=== PATIENT | female | born 1955 | race Caucasian/White ===

== ENCOUNTER 2021-01-08 01:41 | Outpatient (CLI) | payer BC, SELFPAY ==
--- NOTE | 2021-01-08 | DI.MAMMO_ITS ---
EXAM: MAMMO SCREENING CLINICAL HISTORY: SCREENING TECHNIQUE: Mammograms were interpreted according to the usual protocol including computer analysis w [employer] CAD system, tomosynthesis and C-view imaging. COMPARISON: 2010 through 2018 FINDINGS: The breasts are composed of mainly fatty density , Breast Density category A. No suspicious masses or suspicious microcalcifications are seen. No skin thickening or abnormal axillary lymph nodes are seen. There has been no significant change from prior exams. IMPRESSION: BI-RADS Category 1, Negative mammogram Yearly screening mammography is recommended. Breast Density - Category A, fatty density. A negative radiographic report should not delay biopsy if a dominant or clinically suspicious mass is present. Up to ten percent of cancers are not identified on mammography. A negative report may reinforce clinical impression. Adenosis and dense breasts may obscure an underlying neoplasm. False positive reports average 6 to 10%. Patient will receive a letter notifying them of these results.
== END 2021-01-08 01:42 ==
LOC: DI 01:41
PROVIDERS: PCP Family Medicine; Visit Provider Nurse Practitioner
DX: Z12.31 Encounter for screening mammogram for malignant neoplasm of breast (principal)
CPT/HCPCS: 77063; 77067

== ENCOUNTER 2021-01-14 08:44 | Outpatient (REF) | payer BC, SELFPAY ==
--- NOTE | 2021-01-14 08:00 | PAPFT_PTH ---
PATIENT: Marion Baron LOC: [facility]#:[id number] AGE/SX: 65/F ROOM: RE01/14/[address]: Viktoriya Juan : 1955 BED: DIS: 01/14/2021 SPEC #: [id number] RECD: 01/14/21 17:50 STATUS: BRISEIDA REQ #: [id number] AUDIE: 01/14/21 08:[address]: Viktoriya Juan DEPT: [facility] Cytology RECD BY: Charisse Khalil ENTERED: 01/14/21 17:51 SP TYPE: PAPFT OTHR DR: Briana Pierre Tissues: 1 - CX/ENDOCX FOR PAP SMEARS Procedures: PAP THIN PREP/UVM Screening HPV DNA PROBE Comments: [id number]
== END 2021-01-14 08:45 | disposition home or self-care (01) ==
LOC: NCHCN 08:44
PROVIDERS: PCP Family Medicine; Visit Provider Nurse Practitioner
DX: Z12.4 Encounter for screening for malignant neoplasm of cervix (principal); Z11.51 Encounter for screening for human papillomavirus (HPV)
CPT/HCPCS: 88142; 87624

== ENCOUNTER 2022-02-08 16:55 | Outpatient (REF) | payer BC, SELFPAY ==
[2022-02-08 18:46] LABS: ALT 18 U/L (14-59); AST 16 U/L (15-37); Albumin 4.1 g/dL (3.4-5.0); Alkaline Phosphatase 111 U/L (46-116); Anion Gap 9.3 mmol/L (3-11); BUN 9 mg/dL (7-18); Bilirubin, Total 0.5 mg/dL (0.2-1.0); CO2 28.7 mmol/L (21.0-32.0); CREATININE 0.8 mg/dL (0.55-1.02); Calcium 9.5 mg/dL (8.5-10.1); Chloride 104 mmol/L (98-107); Glucose 101 mg/dL (74-106); Potassium 3.8 mmol/L (3.5-5.1); Sodium 142 mmol/L (136-145); Total Protein 7.4 g/dL (6.4-8.2)
== END 2022-02-08 16:56 | disposition home or self-care (01) ==
LOC: NCHCN 16:55
PROVIDERS: PCP Family Medicine; Visit Provider Nurse Practitioner Family
DX: Z00.00 Encounter for general adult medical examination without abnormal findings (principal); I10 Essential (primary) hypertension
CPT/HCPCS: 80053

== ENCOUNTER 2022-12-07 17:57 | Outpatient (REF) | payer BC, SELFPAY ==
[2022-12-07 16:23] LABS: Anion Gap 6.6 mmol/L (3-11); BUN 7 mg/dL (7-18); CO2 30.4 mmol/L (21.0-32.0); CREATININE 0.7 mg/dL (0.55-1.02); Calcium 9.4 mg/dL (8.5-10.1); Calculated LDL 96 mg/dL (<100); Chloride 100 mmol/L (98-107); Cholesterol 173 mg/dL (<200); Estimated GFR 95.32 (mL/min/1.73m2); Glucose 98 mg/dL (74-106); HDL Cholesterol 69 mg/dL (40-60); Potassium 3.8 mmol/L (3.5-5.1); Sodium 137 mmol/L (136-145); Triglyceride 41 mg/dL (<150)
== END 2022-12-07 17:58 | disposition home or self-care (01) ==
LOC: NCHCN 17:57
PROVIDERS: PCP Family Medicine; Visit Provider Nurse Practitioner Family
DX: I10 Essential (primary) hypertension (principal); Z13.220 Encounter for screening for lipoid disorders; Z00.00 Encounter for general adult medical examination without abnormal findings
CPT/HCPCS: 80048; 80061

== ENCOUNTER 2022-12-29 02:25 | Outpatient (CLI) | payer BC, SELFPAY ==
--- NOTE | 2022-12-29 16:40 | DI.MAMMO_ITS ---
Exam(s) MAMMO SCREENING EXAM: MAMMO SCREENING CLINICAL HISTORY: SCREENING, Z12.39 TECHNIQUE: Mammograms were interpreted according to the usual protocol including computer analysis w [employer] CAD system, tomosynthesis and C-view imaging. COMPARISON: 2012 through 2020 FINDINGS: The breasts are composed of mainly fatty density , Breast Density category A. No suspicious masses or suspicious microcalcifications are seen. No skin thickening or abnormal axillary lymph nodes are seen. There has been no significant change from prior exams. IMPRESSION: BI-RADS Category 1, Negative mammogram Yearly screening mammography is recommended. Breast Density - Category A, fatty density. A negative radiographic report should not delay biopsy if a dominant or clinically suspicious mass is present. Up to ten percent of cancers are not identified on mammography. A negative report may reinforce clinical impression. Adenosis and dense breasts may obscure an underlying neoplasm. False positive reports average 6 to 10%. Patient will receive a letter notifying them of these results.
== END 2022-12-29 02:45 ==
LOC: DI 02:27
PROVIDERS: PCP Family Medicine; Visit Provider Nurse Practitioner Family
DX: Z12.31 Encounter for screening mammogram for malignant neoplasm of breast (principal)
CPT/HCPCS: 77063; 77067

== ENCOUNTER 2023-02-07 07:41 | Day surgery (SDC) | payer BC, SELFPAY ==
--- NOTE | 2023-02-06 20:23 | W.PM.DSUDISC ---
Date of service: 02/07/23 Time of Service: 09:49 Discharge Plan Disposition Patient Disposition: Home Condition: Good Discharge Details Reason For Visit: Colonoscopy Attending Provider: Hansel Barr Primary Care Provider: Briana Pierre Home Meds and New Rx's Prescriptions: Continued lisinopril 5 mg tablet 5 mg PO DAILY hydrochlorothiazide 12.5 mg capsule 12.5 mg PO DAILY Discontinued bisacodyl [Dulcolax (bisacodyl)] 5 mg tablet,delayed release (DR/EC) 5 mg PO ONCE Qty: 4 0RF Rx Instructions: Take according to provider's instructions for colonoscopy prep. polyethylene glycol 3350 17 gram/dose powder 17 g PO ONCE Qty: 238 0RF Rx Instructions: To be taken as directed by prescriber's office for colonoscopy prep. Discharge Instructions Additional Instructions: Marion, we were able to complete your colonoscopy today. The quality of your preparation was excellent. I found 1 tiny polyp in your rectum. I removed this completely. I will notify you when I have the pathology report. Based on the character and appearance of it, it could be that this is not even a true polyp. 1. If tolerated, consume a soft, low fiber diet for 1-2 days. 2. Do not drive, drink alcohol, operate machinery, make critical decisions, or do activities that require coordination or balance for 24 hours. 3. Because air was put into your colon during the procedure, expelling air from your rectum (passing gas or farting) is normal. 4. You may not have a bowel movement for 1-3 days because of the colonoscopy prep. This is normal. 5. Go directly to the emergency room if you notice any of the following: Develop chills (warm to touch), or if you have a thermometer and your temperature is above 101 Difficulty breathing or difficultly swallowing Persistent vomiting Severe abdominal pain, other than gas cramps Severe chest pain Black, tarry stools Any bleeding ? exceeding one tablespoon 6. Call your physician if the site where your intravenous was started becomes red, swollen, painful, and warm to touch. 7. Your physician has reviewed your pre-procedure medications. Please continue to take those medications as previously ordered. You will be given specific information/education regarding any changes to your medications before leaving. Activity:: Activity as Tolerated Diet:: As Tolerated Discharge Orders Discharge Orders: Discharge Order (Routine); Ordered 02/06/23 Ordered By: Hansel Barr DS: Diagnosis Discharge Diagnosis (1) Screening for colon cancer: Status: Acute Asessment and Plan: Follow-up on polypectomy results
--- NOTE | 2023-02-06 20:24 | W.COLOREPORT ---
Date of service: 02/07/23 Time of Service: 09:50 Colonoscopy Report Date of procedure: 02/07/23 Pre-op diagnosis general: Screening colonoscopy Procedure: Colonoscopy Surgeon: Hansel Barr Anesthesia Type: General:No Airway Estimated blood loss (mL): 5 Pathology: other (Rectal polyp) Complications: None Disposition: same day Indications: Marion is a 67-year-old woman who is here for her next screening colonoscopy. Prep: Miralax/Dulcolax Procedure Start Time: 09:04 Procedure End Time: 09:38 Retraction Time: 18 Findings: Single rectal polyp Procedure Description: After the induction of monitored anesthetic care, and with the patient in left lateral decubitus position, I began by performing an external anorectal exam.? Perineum and skin were normal, as was the anal verge.? There was no evidence of external hemorrhoids.? Next, I performed a digital rectal exam.? I did not appreciate any abnormal findings.? Next, I advanced a colonoscope into the rectal vault.? I performed retroflexion.? This appeared normal.? There was a single rectal polyp. It was less than 0.25 cm. I removed it with cold forcep polypectomy. Using insufflation, I then advanced the colonoscope beyond the rectal folds and into the sigmoid colon before advancing towards the cecum.? The quality of the prep was adequate.? The colon was a bit tortuous, and did require some repeated repositioning, and gentle abdominal pressure to help advance the scope into the cecum. The scope was noted to be in the cecum by identification of the ileocecal valve and appendiceal orifice.? I then began withdrawing the colonoscope using repeated irrigation as necessary for full evaluation of the colonic mucosa. ?Once the scope was withdrawn to the level of the rectum, great care was taken to examine portions of the rectal folds.? Finally, the scope was withdrawn and the patient was brought to the same-day surgery recovery unit as the anesthetic wore off. ?The findings and instructions were shared with the patient prior to discharge.
[2023-02-07 07:56] VITALS: BP 150/92; PULSE 98; RESP 18; TEMP 36.4; O2SAT 99
[2023-02-07] MEDS: Lactated Ringers 1,000 ML 80 ML IV (08:19)
--- NOTE | 2023-02-07 08:39 | ANES.PREOP_ITS ---
General Info Date of Service Date Performed: 02/07/23 Height: 5 ft 7 in Weight: 98.9 kg Body Mass Index (BMI): 34.1 Surgical Procedure: Operation Date: 02/07/23 08:50 Proposed Procedure Side Surgeon p Aura Barr MD Meds Allergies and Home Medications Allergies Allergy/AdvReac Type Severity Reaction Status Date / Time No Known Allergies Allergy Unverified 01/13/23 15:05 Home Medication Medication Instructions Recorded hydrochlorothiazide 12.5 mg capsule 12.5 mg PO DAILY 06/17/22 lisinopril 5 mg tablet 5 mg PO DAILY 06/17/22 Current Visit Medications: Current Medications Generic Name Dose Route Start Last Admin Trade Name Freq PRN Reason Stop Dose Admin Hyoscyamine Sulfate 0.125 mg 02/06/23 20:25 Hyoscyamine 0.125 Mg Sl/Oral/Chew SL DIRECTED PRN Ringer's Solution 1,000 mls @ 80 mls/hr 02/07/23 06:00 02/07/23 08:19 IV 03/06/23 23:59 80 mls/hr INFUSION RENATO Administration IV Miscellaneous Supplies 1 each 02/07/23 06:00 Iv Access IV 03/06/23 23:59 DIRECTED RENATO Ondansetron HCl 4 mg 02/06/23 20:25 Ondansetron 4 Mg/2 Ml Vial IVP Q4H PRN PRN Nausea / Vomiting Sodium Chloride 0 ml 02/07/23 06:00 Normal Saline Flush 10 Ml Syr IV 03/06/23 23:59 PRN PRN Sodium Chloride 0 ml 02/07/23 06:00 Normal Saline 10 Ml Vial IJ 03/06/23 23:59 DIRECTED PRN Sterile Water 0 ml 02/07/23 06:00 Water,Injection,Sterile 10 Ml Vial IJ 03/06/23 23:59 DIRECTED PRN PFSH Active Problems Active Problems: Problem Status Onset Code Screening for colon cancer Z12.11 Medical History Medical History Bunion, right Cataract, bilateral Hx of adenomatous colonic polyps Hypertension Intraductal papilloma Medical History Comments:: 02/07/23: pt reports she had nausea post- cholecystectomy, related to anesthesia Surgical History Surgical History Arthroplasty of knee (05/05/16) left lateral meniscus tear/DR. ALVARADO Tobacco Smoking/Tobacco Use Status: Never Alcohol Alcohol Intake: current Alcohol intake frequency: holidays/special occasions only Substance Use Substance use: Never Substance use type: does not use Vital Signs and Lab Results Vital Signs Most Recent Vital Signs in EMR: Most Recent Vital Signs Temp Pulse Resp BP Pulse Ox 36.4 C L 98 H 18 150/92 H 99 02/07/23 07:56 02/07/23 07:56 02/07/23 07:56 02/07/23 07:56 02/07/23 07:56 Lab Results Blood Type / Crossmatch: No Data to Display Complete Blood Count: No Data to Display Complete Metabolic Panel: No Data to Display Liver Function Panel: No Data to Display Coagulation Panel: No Data to Display Cardiac Panel: No Data to Display Arterial Blood Gas: No Data to Display Venous Blood Gas: No Data to Display Pancreas Panel: No Data to Display Thyroid Panel: No Data to Display Infectious Disease: No Data to Display Blood Cultures: No Data to Display Toxicology Panel: No Data to Display Anesthesia Assessment and Plan Anesthesia History Personal History: PONV Family History: No Family History of Anesthesia Complications Exercise Tolerance Exercise Tolerance: Metabolic Equivalents>4 Pertinent Negatives Pertinent Negatives: No Symptoms of GERD Cardiac & Pulmonary Exam Cardiac Exam: Normal S1/S2 Heart Sounds Pulmonary Exam: Clear Bilateral Breath Sounds Implantable Cardiac Device Does patient have a Pacemaker or an ICD?: No Airway Exam Known Difficult Airway: No Mallampati Class: 2 Mouth Opening: Normal (> 3cm) Thyromental Distance: Greater than 3 cm Neck Range of Motion: Full ROM Neck Circumference: Normal Teeth Condition: Normal Dentition ASA Classification ASA Score: ASA 2 Emergency Case?: No NPO Status NPO Status: NPO Clears >2 hours, Solids >8 hours Anesthesia Plan Resuscitation Status: Full Code Anesthesia Technique: General Anesthesia Airway Planned: Natural Airway Monitors Used: Standard Monitors
[2023-02-07 08:50] VITALS: BMI 34.1
--- NOTE | 2023-02-07 09:06 | BOWEL_PTH ---
PATIENT: Marion Baron LOC: [facility] U#:[id number] AGE/SX: 67/F ROOM: RE02/07/[address]: Hansel Barr MD : 1955 BED: DIS: 02/07/2023 SPEC #: [id number] RECD: 02/07/23 12:40 STATUS: BRISEIDA REQ #: [id number] AUDIE: 02/07/23 09:[address]: Hansel Barr DEPT: Surgical Specimen RECD BY: Charisse Khalil ENTERED: 02/07/23 12:41 SP TYPE: Bowel OTHR DR: Briana Pierre Tissues: 1 - BIOPSY BOWEL Procedures: GROSS AND MICRO LEVEL 4 Comments: [id number]
[2023-02-07 09:49] VITALS: BP 113/71; PULSE 73; RESP 18; TEMP 36.1; O2SAT 99
--- NOTE | 2023-02-07 09:55 | W.ANESPOSTOP ---
Postoperative Evaluation Date, Time and Location Date Performed: 02/07/23 Time Performed: 09:55 Patient Location: Day Surgery Unit Vital Signs Most Recent Imported Vital Signs: Most Recent Vital Signs Temp Pulse Resp BP Pulse Ox 36.1 C L 73 18 113/71 99 02/07/23 09:49 02/07/23 09:49 02/07/23 09:49 02/07/23 09:49 02/07/23 09:49 Pain Score Most Recent Pain Score: Most Recent Pain Score Pain Level 0 02/07/23 09:49 Assessment Mental Status: Awake (Alert & Oriented to Patient Baseline) Airway and Respiratory Function: Patent airway with normal (patient baseline) respiratory exam Cardiovascular Function: Hemodynamically Stable Hydration Status: Adequately Hydrated Nausea & Vomiting: No Nausea or Vomiting Pain: Pt. Denies Any Pain Peripheral Nerve Block: Patient did not receive a nerve block
[2023-02-07 10:18] VITALS: BP 151/78; PULSE 64; TEMP 36.3; O2SAT 99
== END 2023-02-07 10:26 | disposition home or self-care (01) ==
PROVIDERS: PCP Family Medicine; Visit Provider Surgery
PROC: 0DJD8ZZ Inspection of Lower Intestinal Tract, Via Natural or Artificial Opening Endoscopic (ICD-10-PCS; CPT 45378; principal; 2023-02-07 08:45)
DX: Z12.11 Encounter for screening for malignant neoplasm of colon (principal); K62.1 Rectal polyp
CPT/HCPCS: 45380; 88305; J2704

== ENCOUNTER 2024-05-16 11:41 | Outpatient (REF) | payer MEDICARE, SELFPAY ==
[2024-05-16 19:34] LABS: Anion Gap 8.2 mmol/L (3-11); BUN 11 mg/dL (7-18); CO2 28.8 mmol/L (21.0-32.0); CREATININE 0.8 mg/dL (0.55-1.02); Calcium 9.4 mg/dL (8.5-10.1); Chloride 101 mmol/L (98-107); Estimated GFR 80.71 (mL/min/1.73m2); Glucose 99 mg/dL (74-106); Potassium 4.4 mmol/L (3.5-5.1); Sodium 138 mmol/L (136-145)
== END 2024-05-16 11:42 | disposition home or self-care (01) ==
LOC: LBN 11:41
PROVIDERS: PCP Family Medicine; Visit Provider Nurse Practitioner Family
DX: I10 Essential (primary) hypertension (principal)
CPT/HCPCS: 80048

== ENCOUNTER 2024-07-09 02:34 | Outpatient (CLI) | payer MEDICARE, SELFPAY ==
--- NOTE | 2024-07-09 | DI.DEXA_ITS ---
Exam(s) XR DEXA BONE DENSITY W/WO TRISTAN EXAM: XR DEXA BONE DENSITY W/WO TRISTAN CLINICAL HISTORY: SCREENING FOR OSTEOPOROSIS, Z78.0 TECHNIQUE: COMPARISON: Comparison examination is 05/03/2005. FINDINGS: Lateral Spine Image: Unremarkable. No compression deformities identified. Left hip: Total T-Score: -0.8. This compares to 0.8 on the prior examination. Total Z-Score: 0.5 T- and Z-scores: No evidence of osteoporosis. Lumbar Spine: Total T-Score: 0.3. This compares to 1.4 on the prior examination. Total Z-Score: 2.2 T- and Z-scores: No evidence of osteoporosis. IMPRESSION: No evidence of osteoporosis.
--- NOTE | 2024-07-09 | DI.MAMMO_ITS ---
Exam(s) MAMMO SCREENING EXAM: MAMMO SCREENING CLINICAL HISTORY: SCREENING, Z12.31 TECHNIQUE: Bilateral full field digital CC and MLO mammographic images were obtained with 3D tomosyn thesis and utilizing computer aided detection (CAD). COMPARISON: Available for comparison. FINDINGS: Masses/Architectural Distortion: No suspicious or new nodules are seen. Microcalcifications: No suspicious pleomorphic-type are seen. Skin Thickening/Nipple Retraction: None. IMPRESSION: 1. No significant interval change with no specific features of malignancy noted. 2. Unless there is more urgent need, screening mammography is recommended, as per [employer] guidelines. BI-RADS Category 1 - Negative Breast Density - Category B - Scattered areas of fibroglandular density Breast density category C or D implies that the patient has dense breast tissue. Dense breast tissue is very common and is not abnormal but dense breast tissue can make it harder to find cancer on a ma mmogram. Also, dense breast tissue may increase their breast cancer risk. This information about the result of the mammogram report was provided to the patient to raise their awareness. Use this report when you speak with the patient about their risks for breast cancer, which includes their family hist ory. At that time, you may recommend for more screening tests (Ultrasound or MRI) as they might be us eful based on their risk. A negative radiographic report should not delay biopsy if a dominant or clinically suspicious mass is present. Up to ten percent of cancers are not identified on mammography. A negative report may reinforce clinical impression. Adenosis and dense breasts may obscure an underlying neoplasm. False positive reports average 6 to 10%. Patient will receive a letter notifying them of these results.
--- OUTSIDE RECORDS SUMMARY | 2024-07-09 02:35 | XMS_ITS | Encounter Summary ---
Author Organization [facility] Address [facility] [place] [address] Care Team Providers Care Painter Mirror Name Role Phone Briana Pierre MD Primary Care Provider [phone] Encounter Details Date Type Department Care Team (Late st Contact Info) Description 06/22/2005 Orders Only Dermatology at [place] [address] [place] [id number] Dez Hook MD [address] [facility] [place] [address] Social History Tobacco Use Types Packs/Day Years Used Date Smoking Tobacco: Never Assessed Sex and Gender Information Value Date Recorded Sex Assigned at Not on file Gender Identity Not on file Sexual Orientation Not on file documented as of this encounter Plan of Treatment Not on file documented as of this encounter Procedures Procedure Name Priority Date/Time Associated Diagnosis Comments SURGICAL PATHOLOGY REPORT Routine 06/22/2005 8:29 PM EDT documented in this encounter Results * Surgical Pathology Report (06/22/2005 8:29 PM EDT) Surgical Pathology Report [id number] ? Location: The signing pathologist has (i) examined the relevant preparation(s) for the specimen(s) and (ii) rendered or confirmed the diagnosis(es). . ?Pathology Surgical Pathology Final Report Clinical Information Specimen Submitted: A - (R) Forehead - shave Clinical History: New pigmented papule in pt. with major sun exposure history; Juan K, r/o pigmented BCCa Gross Description Labeled/Fixativ e: ? Labeled with the patient's name, formalin. Qty/Size/Weight : ?Single shave, 0.6 cm, mottled, valero-white to ?valero-pink skin. Sections/Proces sing: ??Inked. Bisected. ??(T1) avt/EJR Microscopic Description Slides reviewed, microscopic description not recorded. Diagnosis Skin of right forehead, shave biopsy: Basal cell carcinoma, pigmented. CR-0 06/23/05 AVT 06/23/05 Verified by: ? Nicole Garland ?Dermatopathol ogist ?(Electronic Signature) The attending pathologist whose signature appears on this report has reviewed all diagnostic slides and has edited the gross and/or microscopic portion of the report in rendering the final pathologic diagnosis. ANTONI MORROW 06/22/2005 8:29 PM EDT Dez Hook MD PATHOLOGY/CYTOLOGY O [facility] Performing Organization Address City/State/[facility] Co tx Phone Number ANTONI MORROW documented in this encounter Visit Diagnoses Not on filedocumented in this encounter Care Teams Painter Mirror Relationship Specialty Start Date End Date Briana Pierre MD [address] [place] [address] PCP - General 10/20/10 documented as of this encounter
--- OUTSIDE RECORDS SUMMARY | 2024-07-09 02:35 | XMS_ITS | Encounter Summary ---
Author Organization [facility] Address [facility] [place] [address] Care Team Providers Care Loader [employer] Name Role Phone Briana Pierre MD Primary Care Provider [phone] Encounter Details Date Type Department Care Team (Latest Contact Info) Description 12/01/2015 1:57 PM EST - 12/01/2015 11:59 PM EST Hospital En[place] [address] Coty Hayward MD [facility] [place] [address] Breast cancer screening, high risk patient Discharge Disposition: Home Social History Tobacco Use Types Packs/Day Years Used Date Smoking Tobacco: Never Sex and Gender Information Value Date Recorded Sex Assigned at Not on file Gender Identity Not on file Sexual Orientation Not on file documented as of this encounter Medications at Time of Discharge Medication Sig Dispensed Refills Start Date End Date hydrochlorothiazide (HYDRODIURIL) 25 mg tablet 10/19/2010 documented as of this encounter Plan of Treatment Not on file documented as of this encounter Procedures Procedure Name Priority Date/Time Associated Diagnosis Comments MAMMO SCREENING CAD AND LASHAE BILATERAL Routine 12/01/2015 2:23 PM EST Breast cancer screening, high risk patient documented in this encounter Results * Mammo Digital Bilateral Screening With CAD and Tomosynthesis (12/01/2015 2:23 PM EST) Anatomical Region Laterality Modality Breast Bilateral Mammography Narrative 12/02/2015 8:49 AM EST BILATERAL MAMMOGRAPHY REASON FOR EXAM: Screening TECHNIQUE: CC and MLO views were obtained of each breast using standard 2-D mammography as well as 3-D tomosynthesis. Computer aided detection was used. This is compared with prior images. FINDINGS: ??The breasts are almost entirely fatty. There are no suspicious microcalcifications, masses, or areas of distortion. The pattern is stable. CONCLUSION: No mammographic evidence of malignancy. RECOMMENDATION: The [place] [employer] and The Society of Breast Imaging recommend annual screening beginning at age 40 for the general female population. Screening should continue as long as a woman is in good health and is expected to live 10 more years or longer. All women should be familiar with the known benefits, limitations, and potential harms linked to breast cancer screening. They should also know how their breasts normally look and feel and report any breast changes to a health care provider right away. Some women - because of their family history, a genetic tendency, or certain other factors - should be screened with MRIs along with mammograms. (The number of women who fall into this category is very small.) The patient and health care provider should discuss the patient history and decide if earlier screening and breast MRI are appropriate. A result letter has been sent to this patient by the [facility]. BIRADS CATEGORY 1: NEGATIVE Coty Hayward MD IMG MAMMO ORDERABLE S documented in this encounter Visit Diagnoses Diagnosis Breast cancer screening, high risk patient Screening mammogram for high-risk patient documented in this encounter Care Teams Loader Malt House Relationship Specialty Start Date End Date Briana Pierre MD [address] [place] [address] PCP - General 10/20/10 documented as of this encounter
--- OUTSIDE RECORDS SUMMARY | 2024-07-09 02:35 | XMS_ITS | Encounter Summary ---
Author Organization [facility] Address [facility] [place] [address] Care Team Providers Care Diamond Wheel Edger Name Role Phone Briana Pierre MD Primary Care Provider [phone] Encounter Details Date Type Department Care Team (Late st Contact Info) Description 07/26/2013 Orders [place] [address] Rachel Khan, JAMIA [facility] [place] [address] Breast cancer screening, high risk patient (Primary Dx) Social History Tobacco Use Types Packs/Day Years Used Date Smoking Tobacco: Never Sex and Gender Information Value Date Recorded Sex Assigned at Not on file Gender Identity Not on file Sexual Orientation Not on file documented as of this encounter Plan of Treatment Not on file documented as of this encounter Results * Mammo digital bilateral Screening with CAD (10/29/2013 1:50 PM EST) Anatomical Region Laterality Modality Breast Bilateral Mammography 10/29/2013 1:50 PM EST Narrative 10/30/2013 11:35 AM EST Reason for Exam: Screening ?? Technique: Craniocaudal (CC) and Medio-lateral Oblique (MLO) views of both breasts obtained with direct digital capture. ?? The exam was evaluated by CAD version 8.3.17. ?? Findings: ?? This is a negative mammogram (ACR Category 1). There is a stable fibroglandular pattern without significant change from prior studies. There is no mammographic evidence of cancer. The breasts are of scattered density. ?? CONCLUSION: This is a NEGATIVE mammogram (ACR Category 1). ?? Routine screening mammography is recommended with the frequency dependent upon the patients age and breast cancer risk factors. ?? A letter has been sent to this patient by the breast imaging center. Procedure Note Bette Burger MD - 10/30/2013 Reason for Exam: Screening Technique: Craniocaudal (CC) and Medio-lateral Oblique (MLO) views of both breasts obtained with direct digital capture. The exam was evaluated by CAD version 8.3.17. Findings: This is a negative mammogram (ACR Category 1). There is a stablefibroglandular pattern without significant change from prior studies. There is no mammographic evidence of cancer. The breasts are of scattered density. CONCLUSION: This is a NEGATIVE mammogram (ACR Category 1). Routine screening mammography is recommended with the frequency dependentupon the patients age and breast cancer risk factors. A letter has been sent to this patient by the breast imaging center. Coty Hayward MD IMG MAMMO ORDERABLE S documented in this encounter Visit Diagnoses Diagnosis Breast cancer screening, high risk patient- Primary Screening mammogram for high-risk patient Breast cancer screening, high risk patient Screening mammogram for high-risk patient documented in this encounter Care Teams Diamond Wheel Edger Relationship Specialty Start Date End Date Briana Pierre MD [address] [place] [address] PCP - General 10/20/10 documented as of this encounter
--- OUTSIDE RECORDS SUMMARY | 2024-07-09 02:35 | XMS_ITS | Clinical Summary ---
Author Organization [facility] [place] [address] Care Team Providers Care Car Hop Name Role Phone Briana Pierre MD Primary Care Provider [phone] Allergies No known active allergies Medications Medication Sig Dispensed Refills Start Date End Date Status hydrochlorothiazide (HYDRODIURIL) 25 mg tablet 10/19/2010 Active Active Problems Problem Noted Date Diagnosed Date Breast cancer screening, high risk patient 10/25 Family History Medical History Relation Comments Breast Cancer Neg Hx Social History Tobacco Use Types Packs/Day Years Used Date Smoking Tobacco: Never Sex and Gender Information Value Date Recorded Sex Assigned at Not on file Gender Identity Not on file Sexual Orientation Not on file Last Filed Vital Signs Vital Sign Reading Time Taken Comments Blood Pressure 132/80 10/25/2011 1:00 PM EST Pulse 57 10/25/2011 1:00 PM EST Temperature - - Respiratory Rate 16 10/25/2011 1:00 PM EST Oxygen Saturation 100% 10/25/2011 1:00 PM EST Inhaled Oxygen Concentration - - Weight 90.2 kg (198 lb 13.7 oz) 011 12:59 PM EST Height 172 cm (5' 7.72) 10/25/2011 12: 58 PM EST Body Mass Index 30.49 10/25/2011 12:58 PM EST Plan of Treatment Health Maintenance Due Date Last Done Comments CT Colonography 1956 Colonoscopy 1956 Colorectal Cancer Screening 1956 FIT DNA 1956 FIT 1956 Sigmoidoscopy (10 year) with FIT yearly 1956 Sigmoidoscopy 1956 Hepatitis C Screening 1974 Tdap adult 1975 Tetanus vaccine 1975 Breast Cancer Share Decision Needed 1996 Zoster vaccine (1 of 2) 2006 Advance Directive 2011 Breast Cancer screening 02/21/2020 02/21/20 18, 02/17/2017, 12/01/2015, Additional history exists Bone Density Scan 2021 Pneumoccocal Vaccine: 65+ (1 of 1 - PCV) 2021 Covid-19 Vaccine (1 - 2022-2 4 season) 2023 Influenza (Flu) vaccine (1 o f 1 - Influenza standard series) 07/29/2024 Procedures Procedure Name Priority Date/Time Associated Diagnosis Comments MAMMO SCREENING CAD AND CHRIS BILATERAL Routine 02/20/2018 1:18 PM EDT Breast cancer screening, high risk patient from Last 3 Months or Most Recently Relevant to Health Maintenance Results * Mammo Screen CAD and Chris Bilat (Generic) (02/20/2018 1:18 PM EDT) Anatomical Region Laterality Modality Breast Bilateral Mammography Impressions 02/20/2018 7:16 PM EDT No mammographic evidence of malignancy. RECOMMENDATION: Routine annual screening. A result letter has been sent to this patient by the Breast Imaging Center. BIRADS CATEGORY 1: NEGATIVE * ??The [place] [employer] and The Society of Breast Imaging recommend annual screening beginning at age 40 for the general female population. * ??Screening should continue as long as a woman is in good health and is expected to live 10 more years or longer. * ??All women should be familiar with the known benefits, limitations, and potential harms linked to breast cancer screening. They also should know how their breasts normally look and feel and report any breast changes to a health care provider right away. * ??Some women, because of their family history, a genetic tendency, or certain other factors, should be screened with MRIs along with mammograms. (The number of women who fall into this category is very small.) The patient and health care provider should discuss the patient history and decide if earlier screening and breast MRI are appropriate. Narrative 02/20/2018 7:16 PM EDT BILATERAL MAMMOGRAPHY REASON FOR EXAM: Screening TECHNIQUE: CC and MLO views were obtained of each breast using standard 2-D mammography as well as 3-D tomosynthesis. Computer aided detection was used. Comparison: This is compared with prior images. FINDINGS: There are scattered areas of fibroglandular density. There are no suspicious microcalcifications, masses, or areas of distortion. The pattern is stable. Coty Hayward MD IMG MAMMO ORDERABLE S from Last 3 Months or Most Recently Relevant to Health Maintenance Care Teams Car Hop Relationship Specialty Start Date End Date Briana Pierre MD [address] [facility] [address] [place] [address] PCP - General 10/20/10
--- OUTSIDE RECORDS SUMMARY | 2024-07-09 02:35 | XMS_ITS | Encounter Summary ---
Author Organization [facility] [place] [address] Care Team Providers Care Proposal Development Manager Name Role Phone Briana Pierre MD Primary Care Provider [phone] Reason for Visit * Reason Comments Follow Up Surgery Encounter Details Date Type Department Care Team (Late st Contact Info) Description 10/29/2013 2:15 PM EST Follow-[place] [address] CLINIC, Rachel Drake, [facility] [place] [address] Breast cancer screening, high risk patient (Primary Dx) Discharge Disposition: Home Social History Tobacco Use Types Packs/Day Years Used Date Smoking Tobacco: Never Sex and Gender Information Value Date Recorded Sex Assigned at Not on file Gender Identity Not on file Sexual Orientation Not on file documented as of this encounter Progress Notes * Rachel Khan, JAMIA - 10/29/2013 2:29 PM EST Marion is a 58 year-old pt of Dr Hayward who presents to clinic today for an interval breast exam. She initially presented with clear nipple discharge, which was quite copious. On evaluation, including ultrasound and MRI, she was found to have one abnormal- appearing duct, although no discrete masses. She was brought to the Operating Room on September 01, 2007, for a wire-localized partial mastectomy. Final pathology revealed an intraductal papilloma as well as a focal area of atypical ductal hyperplasia in the adjacent breast parenchyma. She decided against any form of chemoprevention. She has had no nipple discharge or other new breast concerns. She had a bilateral mammogram today, results pending. On exam, Marion is well-appearing and in no apparent distress. She is anicteric and nontoxic. Right breast reveals a well-healed incision in the lower breast without masses.There is no nipple discharge. No axillary adenopathy, no masses in either breast. Assessment and Plan: Marion is a 58 year-old female with a history of an intraductal papilloma and atypical ductal hyperplasia identified in her surgical specimen.I have recommended that she continue to follow up once a year with a clinical breast exam here in the Breast Clinic, as well as with her primary care provider. I have recommended annual mammograms. I will see Marion back in one year,with a bilateral mammogram in one year or sooner if indicated. She agrees with this plan. documented in this encounter Plan of Treatment Not on file documented as of this encounter Visit Diagnoses Diagnosis Breast cancer screening, high risk patient- Primary Screening mammogram for high-risk patient documented in this encounter Care Teams Proposal Development Manager Relationship Specialty Start Date End Date Briana Pierre MD [address] [place] [address] PCP - General 10/20/10 documented as of this encounter
--- OUTSIDE RECORDS SUMMARY | 2024-07-09 02:35 | XMS_ITS | Encounter Summary ---
Author Organization [facility] Address [facility] [place] [address] Care Team Providers Care Behavioral Health Technician Name Role Phone Briana Pierre MD Primary Care Provider [phone] Encounter Details Date Type Department Care Team (Latest Contact Info) Description 02/20/2018 12:26 PM EDT - 02/20/2018 11:59 PM EDT Hospital [place] [address] Coty Hayward MD [facility] [place] [address] Breast cancer screening, high risk patient Discharge [...] MAMMO SCREENING CAD AND LASHAE BILATERAL Routine 02/20/2018 1:18 PM EDT Breast cancer screening, high risk patient documented in this encounter Results * Mammo Screen CAD and Lashae Bilat (Generic) (02/20/2018 1:18 PM EDT) Anatomical Region Laterality Modality Breast Bilateral Mammography Impressions 02/20/2018 7:16 PM EDT No mammographic evidence of malignancy. RECOMMENDATION: Routine annual screening. A result letter has been sent to this patient by the Breast Imaging Center. BIRADS CATEGORY 1: NEGATIVE * ??The [place] [employer] and The Society of [...] patient documented in this encounter Care Teams Behavioral Health Technician Relationship Specialty Start Date End Date Briana Pierer MD [address] [place] [address] PCP - General 10/20/10 documented as of this encounter
--- OUTSIDE RECORDS SUMMARY | 2024-07-09 02:35 | XMS_ITS | Encounter Summary ---
[place] [address] Care Team Providers Care Ct Technologist Name Role Phone Briana Pierre MD Primary Care Provider [phone] Encounter Details Date Type Department Care Team (Latest Contact Info) Description 10/25/2011 1:14 PM EST - 10/25/2011 11:59 PM EST Hospital En[place] [id number] Breast cancer screening, high risk patient Social History Tobacco Use Types Packs/Day Years [...] Date/Time Associated Diagnosis Comments MAMMO SCREENING CAD BILATERAL Routine 10/25/2011 1:48 PM EST Breast cancer screening, high risk patient documented in this encounter Results * Mammo digital bilateral Screening with CAD (10/25/2011 1:48 PM EST) Anatomical Region Laterality Modality Breast Bilateral Mammography 10/25/2011 1:48 PM EST Narrative 10/26/2011 10:20 AM EST Reason for Exam: Screening ?? Technique: Craniocaudal (CC) and Medio-lateral Oblique (MLO) views of both breasts obtained with direct digital capture. The exam was evaluated by CAD version 8.3.17. ?? Findings: ?? This is a negative mammogram (ACR Category 1). ??There is a stable fibroglandular pattern without significant change from prior studies. There is no mammographic evidence of cancer. ??The breasts are of scattered density. ?? CONCLUSION: This is a NEGATIVE mammogram (ACR Category 1). ?? Routine screening mammography is recommended with the frequency dependent upon the patient's age and breast cancer risk factors. A letter has been sent to this patient by the breast imaging center. Procedure Note Bette Burger MD - 10/26/2011 Reason for Exam: Screening Technique: Craniocaudal (CC) [...] is recommended with the frequency dependentupon the patient's age and breast cancer risk factors. A letter has been sent to this patient by the breast imaging center. Coty Hayward MD IMG MAMMO ORDERABLE S documented in this encounter Visit Diagnoses Diagnosis Breast cancer screening, high risk patient Screening mammogram for high-risk patient documented in this encounter Care Teams Ct Technologist Relationship Specialty Start Date End Date Briana Pierre MD [address] [place] [address] PCP - General 10/20/10 documented as of this encounter
--- OUTSIDE RECORDS SUMMARY | 2024-07-09 02:35 | XMS_ITS | Encounter Summary ---
[place] [address] Care Team Providers Care Survey Compiler Name Role Phone Briana Pierre MD Primary Care Provider [phone] Encounter Details Date Type Department Care Team (Latest Contact Info) Description 10/29/2013 1:21 PM EST - 10/29/2013 11:59 PM EST Hospital [place] [phone] Breast cancer screening, high risk patient Social [...] Diagnosis Comments MAMMO SCREENING CAD BILATERAL Routine 10/29/2013 1:50 PM EST Breast cancer screening, high risk [...] patient documented in this encounter Care Teams Survey Compiler Relationship Specialty Start Date End Date Briana Pierre MD [facility] [address] [place] [address] PCP - General 10/20/10 documented as of this encounter
--- OUTSIDE RECORDS SUMMARY | 2024-07-09 02:35 | XMS_ITS | Encounter Summary ---
[facility] [place] [address] Care Team Providers Care Shipping Specialist Name Role Phone Briana Pierre MD Primary Care Provider [phone] Reason for Visit * Reason Comments Follow-up Encounter Details Date Type Department Care Team (Late st Contact Info) Description 11/04/2014 2:00 PM EST Follow-[place] [address] CLINIC, Rachel Drake, [facility] [place] [address] Breast cancer screening, high risk patient Discharge Disposition: Home Social History Tobacco Use Types Packs/Day Years Used Date Smoking Tobacco: Never Sex and Gender Information Value Date Recorded Sex Assigned at Not on file Gender Identity Not on file Sexual Orientation Not on file documented as of this encounter Progress Notes * Rachel Khan, JAMIA - 11/04/2014 1:56 PM EST Marion is a 59 year-old pt of Dr Hayward who presents [...] had a bilateral mammogram today, results pending. 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 On exam, Marion is well-appearing and in no apparent distress. She is anicteric and nontoxic. Right breast reveals a well-healed incision in the lower breast without masses.There is no nipple discharge. No axillary adenopathy, no masses in either breast. Assessment and Plan: Marion is a 59 year-old female with a history of an [...] patient documented in this encounter Care Teams Shipping Specialist Relationship Specialty Start Date End Date Briana Pierre MD [address] [place] [address] PCP - General 10/20/10 documented as of this encounter
--- OUTSIDE RECORDS SUMMARY | 2024-07-09 02:35 | XMS_ITS | Encounter Summary ---
[place] [address] Care Team Providers Care Ribbon Lapper Tender Name Role Phone Briana Pierre MD Primary Care Provider [phone] Reason for Visit * Reason Comments Follow Up Surgery Encounter Details Date Type Department Care Team (Late st Contact Info) Description 02/20/2018 2:15 PM EDT Office Visit [place] [address] Rachel Khan, JAMIA [facility] [place] [address] Breast cancer screening, high risk patient Social History Tobacco Use Types Packs/Day Years Used Date Smoking Tobacco: Never Sex and Gender Information Value Date Recorded Sex Assigned at Not on file Gender Identity Not on file Sexual Orientation Not on file documented as of this encounter Progress Notes * Rachel Khan APRN - 02/20/2018 2:15 PM EDT Marion is a 62 year-old pt of Dr Hayward who presents [...] breast concerns. 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 On exam, Marion is well-appearing and in no apparent distress. She is anicteric and nontoxic. Right breast reveals a well-healed incision in the lower breast without masses.There is no nipple discharge. No axillary adenopathy, no masses in either breast. Assessment and Plan: Marion is a 89 year-old female with a history of an intraductal papilloma and atypical ductal hyperplasia identified in her surgical specimen.I have recommended that she continueto follow up once a year with a clinical breast exam here in the Breast Clinic, as well as with herprimary care provider. I have recommended annual mammograms. [...] patient documented in this encounter Care Teams Ribbon Lapper Tender Relationship Specialty Start Date End Date Briana Pierre MD [address] [place] [address] PCP - General 10/20/10 documented as of this encounter
--- OUTSIDE RECORDS SUMMARY | 2024-07-09 02:35 | XMS_ITS | Encounter Summary ---
Author Organization [facility] Address [facility] [place] [address] Care Team Providers Care Grooving Machine Operator Name Role Phone Briana Pierre MD Primary Care Provider [phone] Encounter Details Date Type Department Care Team (Late st Contact Info) Description 09/01/2007 Orders [place] [address] Coty Hayward MD [facility] [place] [address] Social History Tobacco Use Types Packs/Day Years [...] Associated Diagnosis Comments SURGICAL PATHOLOGY REPORT Routine 09/01/2007 12:29 PM EDT documented in this encounter Results * Surgical Pathology Report (09/01/2007 12:29 PM EDT) Surgical Pathology Report [id number] ? Location: The signing pathologist has (i) examined the relevant preparation(s) for the specimen(s) and (ii) rendered or confirmed the diagnosis(es). . ?Pathology Surgical Pathology Final Report Clinical Information Specimen Submitted: A - Right breast Partial Mastectomy: ??Right Breast Clinical Diagnosis: Nipple Discharge Gross Description Labeled/Fixative: ? Right breast partial mastectomy, fresh. Qty/Size/Weight: ?Single, 5.5 x 4.0 x 1.8 cm, 13 g. Radiograph: ? Received demonstrating a needle localization wire ?with ductal tissue present. Tissue Description: ?? According to the established protocol, the ink ?designations are red (medial), yellow (lateral), ?orange (cranial), green (caudal), black (deep), and ?blue (superficial). Tissue Sections: ?The specimen is serially sectioned perpendicular to ?the long axis from deep (black) to superficial (blue) ?into twelve slices, each averaging 0.5 cm in ?thickness. Lesion: ? Size: ?0.5 x 0.3 x 0.3 cm. ? Color: ? [place]. ? Consistency: ? Soft. ? Location: ?Slices V-. ? Nearest margin: ?The mass is greater than 0.5 cm from all ?margins. Parenchyma: ? Predominantly fatty. Sections/Processi ng: ??The specimen is sequentially submitted from slice I ?to XII. ?? (T12) ??aje/SNS Microscopic Description Slides reviewed, microscopic description not recorded. Diagnosis Right breast, needle localization, excision: 1 - Intraductal papilloma. 2 - Focal atypical ductal hyperplasia in adjacent breast parenchyma (A10) CR-0 09/04/07 INDY 09/05/07 Verified by: ? Selene Kim MD ?Pathologist ?(Electronic Signature) The attending pathologist whose signature appears on this report has reviewed all diagnostic slides and has edited the gross and/or microscopic portion of the report in rendering the final pathologic diagnosis. ANTONI MORROW 09/01/2007 12:2 9 PM EDT Coty Hayward MD PATHOLOGY/CYTOLOGY ORDERABLES ANTONI MORROW documented in this encounter Visit Diagnoses Not on filedocumented in this encounter Care Teams Grooving Machine Operator Relationship Specialty Start Date End Date Briana Pierre MD [address] [place] [address] PCP - General 10/20/10 documented as of this encounter
--- OUTSIDE RECORDS SUMMARY | 2024-07-09 02:35 | XMS_ITS | Encounter Summary ---
Author Organization [facility] [place] [address] Care Team Providers Care Wireless Engineer Name Role Phone Briana Pierre MD Primary Care Provider [phone] Encounter Details Date Type Department Care Team (Late st Contact Info) Description 11/04/2014 1:08 PM EST - 11/04/2014 11:59 PM EST Hospital Encounter [place] [phone] Social History Tobacco Use Types Packs/Day Years [...] Diagnosis Comments MAMMO SCREENING CAD BILATERAL Routine 11/04/2014 1:30 PM EST documented in this encounter Results * Mammo digital bilateral Screening with CAD (11/04/2014 1:30 PM EST) Anatomical Region Laterality Modality Breast Bilateral Mammography 11/04/2014 1:30 PM EST Narrative 11/07/2014 10:45 AM EST BILATERAL MAMMOGRAPHY ?? REASON FOR EXAM: Screening. History of Right breast ADH on surgical biopsy. ? TECHNIQUE: Cranio-caudal (CC) and mediolateral oblique (MLO) views of both breasts obtained with direct digital capture. The exam was evaluated by CAD Version 8.3.17. ?? FINDINGS: This is a negative mammogram (ACR Category 1). There is a stable fibroglandular pattern without significant change as compared to prior studies. There is no mammographic evidence of cancer. ? The breasts are of scattered density. ? CONCLUSION ?? This is a NEGATIVE mammogram (ACR Category 1). Routine screening mammography is recommended with the frequency dependent on the patient's age and breast cancer risk factors. ?? A letter has been sent to this patient by the [facility]. Procedure Note Miri Lorenzana MD - 11/07/2014 BILATERAL MAMMOGRAPHY REASON FOR EXAM: Screening. History of Right breast ADH on surgicalbiopsy. TECHNIQUE: Cranio-caudal (CC) and mediolateral oblique (MLO) views of both breasts obtained with direct digital capture. The exam was evaluated byCAD Version 8.3.17. FINDINGS: This is a negative mammogram (ACR Category 1). There is a stable fibroglandular pattern without significant change as compared to priorstudies. There is no mammographic evidence of cancer. The breasts are of scattered density. CONCLUSION This is a NEGATIVE mammogram (ACR Category 1). Routine screeningmammography is recommended with the frequency dependent on the patient's age and breastcancer risk factors. A letter has been sent to this patient by the [facility]. Rachel Khan APRN IMG MAMMO ORDERA BLES documented in this encounter Visit Diagnoses Not on filedocumented in this encounter Care Teams Wireless Engineer Relationship Specialty Start Date End Date Briana Pierre MD [address] [place] [address] PCP - General 10/20/10 documented as of this encounter
--- OUTSIDE RECORDS SUMMARY | 2024-07-09 02:35 | XMS_ITS | Encounter Summary ---
Author Organization [facility] Address [facility] [place] [address] Care Team Providers Care Semiconductor Processing Group Leader Name Role Phone Briana Pierre MD Primary Care Provider [phone] Encounter Details Date Type Department Care Team (Latest Contact Info) Description 02/17/2017 10:22 AM EDT - 02/17/2017 11:59 PM EDT Hospital [place] [address] Coty Hayward MD [facility] [place] [address] Encounter for screening mammogram for high-risk patient Discharge Disposition: Home Social History Tobacco [...] MAMMO SCREENING CAD AND CHRIS BILATERAL Routine 02/17/2017 11:02 AM EDT Encounter for screening mammogram for high-risk patient documented in this encounter Results * Mammo Screen CAD and Chris Bilat (Generic) (02/17/2017 11:02 AM EDT) Anatomical Region Laterality Modality Breast Bilateral Mammography Narrative 02/17/2017 11:08 AM EDT BILATERAL MAMMOGRAPHY REASON FOR EXAM: Screening [...] No mammographic evidence of malignancy. RECOMMENDATION: [employer] and The Society of [...] documented in this encounter Visit Diagnoses Diagnosis Encounter for screening mammogram for high-risk patient documented in this encounter Care Teams Semiconductor Processing Group Leader Relationship Specialty Start Date End Date Briana Pierre MD [address] [place] [address] PCP - General 10/20/10 documented as of this encounter
--- OUTSIDE RECORDS SUMMARY | 2024-07-09 02:35 | XMS_ITS | Encounter Summary ---
[place] [address] Care Team Providers Care Orchid Transplanter Name Role Phone Unavailable Primary Care Provider Unavailabl e Encounter Details Date Type Department Care Team (Late st Contact Info) Description 10/19/2010 1:45 PM EST Follow-[place] [address] Rachel Khan APRN [facility] [place] [address] Social History Tobacco Use Types Packs/Day Years Used Date Smoking Tobacco: Never Assessed Sex and Gender Information Value Date Recorded Sex Assigned at Not on file Gender Identity Not on file Sexual Orientation Not on file documented as of this encounter Plan of Treatment Not on file documented as of this encounter Visit Diagnoses Not on filedocumented in this encounter
--- OUTSIDE RECORDS SUMMARY | 2024-07-09 02:35 | XMS_ITS | Encounter Summary ---
[place] [address] Care Team Providers Care Research Tech Name Role Phone Briana Pierre MD Primary Care Provider [phone] Reason for Visit * Reason Comments Follow Up Surgery Encounter Details Date Type Department Care Team (Late st Contact Info) Description 12/01/2015 2:15 PM EST Office [place] [address] Rachel Khan, E COMMERCE SOLUTION ARCHITECT [facility] [place] [address] Breast cancer screening, high risk patient Social History Tobacco Use Types Packs/Day Years Used Date Smoking Tobacco: Never Sex and Gender Information Value Date Recorded Sex Assigned at Not on file Gender Identity Not on file Sexual Orientation Not on file documented as of this encounter Progress Notes * Rachel Khan APRN - 12/01/2015 1:46 PM EST Marion is a 60 year-old pt of Dr Hayward who presents [...] had a bilateral mammogram today, results pending. 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 She is anicteric and nontoxic. Right breast reveals a well-healed incision in the lower breast without masses.There is no nipple discharge. No axillary adenopathy, no masses in either breast. Assessment and Plan: Marion is a 60 year-old female with a history of an [...] patient documented in this encounter Care Teams Research Tech Relationship Specialty Start Date End Date Briana Pierre MD [address] [place] [address] PCP - General 10/20/10 documented as of this encounter
--- OUTSIDE RECORDS SUMMARY | 2024-07-09 02:35 | XMS_ITS | Encounter Summary ---
[place] [address] Care Team Providers Care Family Services Specialist Name Role Phone Unavailable Primary Care Provider Unavailabl e Encounter Details Date Type Department Care Team (Late st Contact Info) Description 10/19/2010 1:15 PM EST Office Visit [place] [address] Social History Tobacco Use Types Packs/Day Years [...]
--- OUTSIDE RECORDS SUMMARY | 2024-07-09 02:35 | XMS_ITS | Encounter Summary ---
Author Organization [facility] [place] [address] Care Team Providers Care Principal Law Clerk Name Role Phone Briana Pierre MD Primary Care Provider [phone] Encounter Details Date Type Department Care Team (Late st Contact Info) Description 08/13/2011 Orders [place] [address] Rachel Khan, SENIOR SOFTWARE DEVELOPMENT ENGINEER [facility] [place] [address] Breast cancer screening, high risk patient (Primary [...] patient documented in this encounter Care Teams Principal Law Clerk Relationship Specialty Start Date End Date Briana Pierre MD [address] [place] [address] PCP - General 10/20/10 documented as of this encounter
--- OUTSIDE RECORDS SUMMARY | 2024-07-09 02:35 | XMS_ITS | Encounter Summary ---
[place] [address] Care Team Providers Care Grease Remover Name Role Phone Briana Pierre MD Primary Care Provider [phone] Encounter Details Date Type Department Care Team (Latest Contact Info) Description 10/26/2012 1:34 PM EST - 10/26/2012 11:59 PM EST Hospital Encounter [place] [id number] Screening mammogram for high-risk patient Social History Tobacco Use Types Packs/Day [...] Diagnosis Comments MAMMO SCREENING CAD BILATERAL Routine 10/26/2012 1:48 PM EST Screening mammogram for high-risk patient documented in this encounter Results * MAMMO DIGITAL BILATERAL SCREENING WITH CAD (10/26/2012 1:48 PM EST) Anatomical Region Laterality Modality Breast Bilateral Mammography 10/26/2012 1:48 PM EST Narrative 10/27/2012 11:16 AM EST Reason for Exam: Screening ?? [...] by the breast imaging center. Procedure Note Chris Allen MD - 10/29/2012 Reason for Exam: Screening Technique: Craniocaudal (CC) [...] to this patient by the breast imaging [facility]. Rachel Khan APRN IMG MAMMO ORDERA BLES documented in this encounter Visit Diagnoses Diagnosis Screening mammogram for high-risk patient documented in this encounter Care Teams Grease Remover Relationship Specialty Start Date End Date Briana Pierre MD [facility] [address] [place] [address] PCP - General 10/20/10 documented as of this encounter
--- OUTSIDE RECORDS SUMMARY | 2024-07-09 02:35 | XMS_ITS | Encounter Summary ---
Author [facility] [place] [address] Care Team Providers Care Bias Cutting Machine Operator Vertical Name Role Phone Briana Pierre MD Primary Care Provider [phone] Reason for Visit * Reason Comments Follow-up Encounter Details Date Type Department Care Team (Late st Contact Info) Description 10/26/2012 2:45 PM EST Follow-[place] [id number] CLINIC, Rachel Drake, [facility] [place] [address] Breast cancer screening, high risk patient (Primary Dx) Discharge Disposition: Home Social History Tobacco Use Types Packs/Day Years Used Date Smoking Tobacco: Never Sex and Gender Information Value Date Recorded Sex Assigned at Not on file Gender Identity Not on file Sexual Orientation Not on file documented as of this encounter Progress Notes * Rachel Khan, JAMIA - 10/26/2012 3:02 PM EST Marion is a 57 year-old pt of Dr Hayward who presents [...] breast. Assessment and Plan: Marion is a 57-year-old female with a history of an intraductal [...] patient documented in this encounter Care Teams Bias Cutting Machine Operator Vertical Relationship Specialty Start Date End Date Briana Pierre MD [address] [place] [address] PCP - General 10/20/10 documented as of this encounter
--- OUTSIDE RECORDS SUMMARY | 2024-07-09 02:35 | XMS_ITS | Encounter Summary ---
Author Organization [facility] [place] [address] Care Team Providers Care Spindle Setter Name Role Phone Briana Pierre MD Primary Care Provider [phone] Reason for Visit * Reason Comments Follow Up Surgery Encounter Details Date Type Department Care Team (Late st Contact Info) Description 10/25/2011 1:00 PM EST Follow-[place] [id number] Rachel Khan APRN [facility] [place] [address] Breast cancer screening, high risk patient (Primary Dx) Discharge Disposition: Home Social History Tobacco Use Types Packs/Day Years Used Date Smoking Tobacco: Never Sex and Gender Information Value Date Recorded Sex Assigned at Not on file Gender Identity Not on file Sexual Orientation Not on file documented as of this encounter Last Filed Vital Signs Vital Sign Reading [...] Mass Index 30.49 10/25/2011 12:58 PM EST documented in this encounter Progress Notes * Rachel Khan APRN - 10/25/2011 1:11 PM EST Marion is a 56 year-old pt of Dr Hayward who presents [...] hyperplasia in the adjacent breast parenchyma. She has decided against any form of chemoprevention. She has had no nipple discharge or other new breast concerns. She had a bilateral mammogram today, results pending. On exam, Marion is well-appearing and in no apparent distress. She is anicteric and nontoxic. Right breast reveals a well-healed incision in the lower breast without masses.There is no nipple discharge. Assessment and Plan: Marion is a 56-year-old female with a history of an intraductal [...] patient documented in this encounter Care Teams Spindle Setter Relationship Specialty Start Date End Date Briana Pierre MD [address] [place] [address] PCP - General 10/20/10 documented as of this encounter
--- OUTSIDE RECORDS SUMMARY | 2024-07-09 02:35 | XMS_ITS | Encounter Summary ---
Author [facility] [place] [address] Care Team Providers Care Air Conditioning Service Technician Name Role Phone Briana Pierre MD Primary Care Provider [phone] Reason for Visit * Reason Comments Follow Up Surgery Encounter Details Date Type Department Care Team (Late st Contact Info) Description 02/17/2017 11:45 AM EDT Office [place] [address] Rachel Khan, JAMIA [facility] [place] [address] Breast cancer screening, high risk patient Social History Tobacco Use Types Packs/Day Years Used Date Smoking Tobacco: Never Sex and Gender Information Value Date Recorded Sex Assigned at Not on file Gender Identity Not on file Sexual Orientation Not on file documented as of this encounter Progress Notes * Rachel Khan APRN - 02/17/2017 11:45 AM EDT Marion is a 61 year-old pt of Dr Hayward who presents [...] breast concerns. 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 On exam, Marion is well-appearing and in no apparent distress. She is anicteric and nontoxic. Right breast reveals a well-healed incision in the lower breast without masses.There is no nipple discharge. No axillary adenopathy, no masses in either breast. Assessment and Plan: Marion is a 61 year-old female with a history of an [...] as of this encounter Results * Mammo Screen CAD [...] risk patient Screening mammogram for high-risk patient Breast cancer screening, high risk patient Screening mammogram for high-risk patient documented in this encounter Care Teams Air Conditioning Service Technician Relationship Specialty Start Date End Date Briana Pierre MD [address] [place] [address] PCP - General 10/20/10 documented as of this encounter
--- OUTSIDE RECORDS SUMMARY | 2024-07-09 02:36 | XMS_ITS | Encounter Summary ---
Author Organization [facility] Address [address] [place] [address] Care Team Providers Care Rigger Name Role Phone Briana Pierre MD Primary Care Provider [phone] Encounter Details Date Type Department Care Team (Late st Contact Info) Description 02/07/2023 Lab Requisition [facility] Pathology & Laboratory Medicine - [facility] [address] [place] [address] Hansel Barr MD [address] [place] [address], [address] [place], [place] [id number] Encounter for screening for malignant neoplasm of colon Social History Tobacco Use Types Packs/Day Years Used Date Smoking Tobacco: Never Assessed Sex and Gender Information Value Date Recorded Sex Assigned at Not on file Gender Identity Not on file Sexual Orientation Not on file documented as of this encounter Plan of Treatment Not on file documented as of this encounter Procedures Procedure Name Priority Date/Time Associated Diagnosis Comments SURGICAL PATHOLOGY Today 02/07/2023 9:06 EDT Encounter for screening for malignant neoplasm of colon documented in this encounter Results * SURGICAL PATHOLOGY (02/07/2023 9:06 EDT) Note to Patient The following pathology results have been interpreted by your pathologist and may be available to you before your health provider has had the opportunity to review them. Please allow time for your provider to receive these results and explore management options, if applicable. 02/09/2023 11:03 EDT [facility] Final Diagnosis A. RECTUM, BIOPSY: - Hyperplastic polyp 02/09/2023 11:03 [facility] Attestation By the signature below, the attending physician certifies that they have 1) personally conducted a gross and/or microscopic examination of the described specimen(s), and/or personally interpreted the results of laboratory testing of the described specimen(s), and 2) personally rendered or confirmed the above diagnosis. 02/09/2023 11:03 [facility] at 1103 Clinical History Screening for colon cancer 02/09/2023 11:03 [facility] Gross Description A. Received in formalin labelled with proper patient identification (initials M, K) and rectal polyp is a valero-brown tissue (0.5 x 0.3 x 0.2 cm). Entirely submitted in A1. ANITHA GRIFFITH(ASCP) 02/08/2023 7:35 02/09/2023 11:03 [facility] Performing Lab [facility] 02/09/2023 11:03 [facility] Scanned Images 02/09/2023 11:03 [facility] Tissue SPECIMEN FROM RECTUM / Unknown 02/07/2023 9:06 EDT 02/07/2023 17:36 EDT Hansel Barr MD PATHOLOGY ORDERABLES [facility] [address] [place] [address] documented in this encounter Visit Diagnoses Diagnosis Encounter for screening for malignant neoplasm of colon Special screening for malignant neoplasms, colon documented in this encounter Care Teams Rigger Relationship Specialty Start Date End Date Briana Pierre MD [address] [place] [phone] PCP - General 01/21/10 documented as of this encounter
--- OUTSIDE RECORDS SUMMARY | 2024-07-09 02:36 | XMS_ITS | Encounter Summary ---
Author Organization [facility] Address [address] [place] [address] Care Team Providers Care Motor Route Carrier Name Role Phone Unavailable Primary Care Provider Unavailabl e Encounter Details Date Type Department Care Team (Late st Contact Info) Description 07/30/2008 Before PRISM Converted Visit (Maple) [facility] - Maple conversion [address] [place] [address] Manuel De Los Santos, THAO [address] [place] [id number] Social History Tobacco Use Types Packs/Day Years Used Date Smoking Tobacco: Never Assessed Sex and Gender Information Value Date Recorded Sex Assigned at Not on file Gender Identity Not on file Sexual Orientation Not on file documented as of this encounter Plan of Treatment Not on file documented as of this encounter Procedures Procedure Name Priority Date/Time Associated Diagnosis Comments CYTOPATHOLOGY Routine 07/30/2008 0:00 EDT documented in this encounter Results * CYTOPATHOLOGY (07/30/2008 0:00 EDT) Pathology Report: CYTOPATHOLOGY REPORT ? Reports generated via electronic interface contain original data; ? however they are lacking the format of the original report. ? Caution should be taken when reading/interpreti ng unformatted reports. ? Name: ? MARION SCHRADER ? Accession #: ? [id number] ? : ? 1955 (Age: 52) ??F ?Collect Date: ? 07/30/2008 ? Location: ? [facility] ? Receive Date: ? 08/01/2008 ? Provider: ?MANUEL DE LOS SANTOS NP ? Copy to: ? Specimen/Source: ?ThinPrep Pap Test, Cervix/Endocervix, processed on [employer] ThinPrep Imaging System, with manual evaluation ? Last Menstrual Period: ? @2000 ? Other: ? HPVA - HPV testing requested if ASC-US on the current ThinPrep Pap test. ? SPECIMEN ADEQUACY ? Satisfactory for Evaluation ? - transformation zone component present ? GENERAL CATEGORIZATION ? Negative for Intraepithelial Lesion or Malignancy ? Document reviewed and electronically signed by: ? Lynan Timothy, CT(ASCP) ? Report Date: ??08/05/2008 09:55 ? End of Report ? [facility] RE[facility] 07/30/2008 08/01/2008 Manuel De Los Santos NP PATHOLOGY ORDERABLES [facility] [address] [place] [address] documented in this encounter Visit Diagnoses Not on filedocumented in this encounter
--- OUTSIDE RECORDS SUMMARY | 2024-07-09 02:36 | XMS_ITS | Referral Summary ---
Author Organization [facility] Address [address] [place] [address] Care Team Providers Care Butadiene Converter Helper Name Role Phone Briana Pierre MD Primary Care Provider [phone] Social History Tobacco Use Types Packs/Day Years Used Date Smoking Tobacco: Never Assessed Sex and Gender Information Value Date Recorded Sex Assigned at Not on file Gender Identity Not on file Sexual Orientation Not on file Plan of Treatment Not on file Care Teams Butadiene Converter Helper Relationship Specialty Start Date End Date Briana Pierre MD [address] [place] [phone] PCP - General 01/21/10
--- OUTSIDE RECORDS SUMMARY | 2024-07-09 02:36 | XMS_ITS | Encounter Summary ---
Author Organization [facility] Address [address] [place] [address] Care Team Providers Care Photo Graphics Librarian Name Role Phone Briana Pierre MD Primary Care Provider [phone] Encounter Details Date Type Department Care Team (Late st Contact Info) Description 06/13/2007 Results Only [facility] - Maple conversion [address] [place] [address] Manuel De Los Santos, THAO [address] [place] [address] Social History Tobacco Use Types Packs/Day Years Used Date Smoking Tobacco: Never Assessed Sex and Gender Information Value Date Recorded Sex Assigned at Not on file Gender Identity Not on file Sexual Orientation Not on file documented as of this encounter Plan of Treatment Not on file documented as of this encounter Procedures Procedure Name Priority Date/Time Associated Diagnosis Comments CYTOPATHOLOGY Routine 06/13/2007 0:00 EDT CYTOPATHOLOGY Routine 06/13/2007 0:00 EDT documented in this encounter Results * CYTOPATHOLOGY (06/13/2007 0:00 EDT) Pathology Report: CYTOPATHOLOGY REPORT Reports generated via electronic interface contain original data; however they are lacking the format of the original report. Caution should be taken when reading/interpreti ng unformatted reports. Name: ? MARION SCHRADER ? Accession #: ? [id number] : ? 1955 (Age: 51) ??F ?Collect Date: ? 06/13/2007 Location: ? [facility] ? Receive Date: ? 06/15/2007 Provider: ?MANUEL DE LOS SANTOS NP Copy to: ? Specimen/Source: ?ThinPrep Pap Test, Cervix/Endocervix, processed on [employer] ThinPrep Imaging System, with manual evaluation Last Menstrual Period: ? 2001 Other: ? HPVA - HPV testing requested if ASC-US on the current ThinPrep Pap test. ? SPECIMEN ADEQUACY ? Satisfactory for Evaluation - assessment of transformation zone component not applicable ( e.g. atrophy, vaginal sample, hysterectomy) GENERAL CATEGORIZATION ? Negative for Intraepithelial Lesion or Malignancy INTERPRETATION ? Reactive cellular changes associated with inflammation present (includes repair). ? Document reviewed and electronically signed by: ? SILSA IVAN MD ? Report Date: ??06/22/2007 13:02 End of Report KATY REYES 06/13/2007 06/15/2007 Manuel De Los Santos NP PATHOLOGY ORDERABLES [facility] [address] [place] [address] * CYTOPATHOLOGY (06/13/2007 0:00 EDT) Pathology Report: CYTOPATHOLOGY REPORT Reports generated via electronic interface contain original data; however they are lacking the format of the original report. Caution should be taken when reading/interpreti ng unformatted reports. Name: ? MARION SCHRADER ? Accession #: ? [id number] : ? 1955 (Age: 51) ??F ?Collect Date: ? 06/13/2007 Location: ? [facility] ? Receive Date: ? 06/15/2007 Provider: ? MANUEL DE LOS SANTOS NP Copy to: ? CYTOLOGIC DIAGNOSIS: ? Breast, right, fluid, cytologic evaluation: - Non-diagnostic specimen; acellular specimen. Document reviewed and electronically signed by: ? Nicole Nicholson MD Report Date: ??06/16/2007 18:11 By the signature above, the attending physician certifies that he/she has personally conducted a gross and/or microscopic examination of the described specimens and rendered or confirmed the above diagnosis. Specimen Type: ? Breast, Fine Needle Aspiration, Right Clinical History: ? Not listed ? Gross Description: ? 1 tube of Cytolyt, containing 1 slide, was received and processed by selective cellular enhancement technique. ? End of Report KATY REYES 06/13/2007 06/15/2007 8:0 0 EDT Manuel De Los Santos NP PATHOLOGY ORDERABLES [facility] [address] [place] [address] documented in this encounter Visit Diagnoses Not on filedocumented in this encounter Care Teams Photo Graphics Librarian Relationship Specialty Start Date End Date Briana Pierre MD [address] [place] [phone] PCP - General 01/21/10 documented as of this encounter
--- OUTSIDE RECORDS SUMMARY | 2024-07-09 02:36 | XMS_ITS | Encounter Summary ---
Author Organization [facility] Address [address] [place] [address] Care Team Providers Care Bill Clerk Name Role Phone Briana Pierre MD Primary Care Provider [phone] Encounter Details Date Type Department Care Team (Late st Contact Info) Description 03/29/2005 Results Only [facility] - Maple conversion [address] [place] [address] Manuel De Los Santos, THAO [address] [place] [address] Social History Tobacco Use Types [...] Priority Date/Time Associated Diagnosis Comments CYTOPATHOLOGY Routine 03/29/2005 0:00 EDT documented in this encounter Results * CYTOPATHOLOGY (03/29/2005 0:00 EDT) Pathology Report: CYTOPATHOLOGY REPORT Reports generated via electronic interface contain original data; however they are lacking the format of the original report. Caution should be taken when reading/interpreti ng unformatted reports. Name: ? MARION SCHARDER ? Accession #: ? [id number] : ? 1955 (Age: 49) ??F ?Collect Date: ? 03/29/2005 Location: ? [facility] ? Receive Date: ? 03/31/2005 Provider: ?MANUEL DE LOS SANTOS ELECTRIC INSTALLER Copy to: ? Specimen/Source: ?ThinPrep Pap Test, Cervix/Endocervix Last Menstrual Period: ? Menstrual/Pregnanc y Status: ? Post Menopausal Other: ? HPVA - HPV testing requested if ASC-US on the current ThinPrep Pap test. ? SPECIMEN ADEQUACY ? Satisfactory for Evaluation - transformation zone component present GENERAL CATEGORIZATION ? Negative for Intraepithelial Lesion or Malignancy ? Document reviewed and electronically signed by: ? JONO Landa(ASCP) ? Report Date: ??04/06/2005 10:38 End of Report [facility]ATY REYES 03/29/2005 03/31/2005 Manuel De Los Santos ELECTRIC INSTALLER PATHOLOGY ORDERABLES Performing Organization Address City/State/[facility] Co de Phone Number KATY REYES [address] [place] [address] documented in this encounter Visit Diagnoses Not on filedocumented in this encounter Care Teams Bill Clerk Relationship Specialty Start Date End Date Briana Pierre MD [address] [phone] PCP - General 01/21/10 documented as of this encounter
--- OUTSIDE RECORDS SUMMARY | 2024-07-09 02:36 | XMS_ITS | Encounter Summary ---
Author Organization [facility] Address [address] [place] [address] Care Team Providers Care Manager Purchasing Name Role Phone Briana Pierre MD Primary Care Provider [phone] Encounter Details Date Type Department Care Team (Late st Contact Info) Description 03/09/2004 Results Only [facility] - Maple conversion [address] [place] [address] Manuel De Los Santos, THAO [address] [place] [address] Social History Tobacco Use Types [...] Priority Date/Time Associated Diagnosis Comments CYTOPATHOLOGY Routine 03/09/2004 0:00 EDT documented in this encounter Results * CYTOPATHOLOGY (03/09/2004 0:00 EDT) Pathology Report: CYTOPATHOLOGY REPORT Reports generated via electronic interface contain original data; however they are lacking the format of the original report. Caution should be taken when reading/interpreti ng unformatted reports. Name: ? MARION SCHRADER ? Accession #: ? [id number] : ? 1955 (Age: 48) ??F ?Collect Date: ? 03/09/2004 Location: ? [facility] ? Receive Date: ? 03/11/2004 Provider: ?MANUEL DE LOS SANTOS COMP FIELD CASE MANAGER Copy to: ? Specimen/Source: ?ThinPrep Pap Test, Cervix/Endocervix Last Menstrual Period: ? 07/2002 Other: ? HPVA - HPV testing requested if ASC-US on the current ThinPrep Pap test. ? SPECIMEN ADEQUACY ? Satisfactory for Evaluation - transformation zone component present GENERAL CATEGORIZATION ? Negative for Intraepithelial Lesion or Malignancy ? Document reviewed and electronically signed by: ? JONO Naik(ASCP) ? Report Date: ??03/13/2004 11:03 End of Report KATY REYES 03/09/2004 03/11/2004 Manuel De Los Santos COMP FIELD CASE MANAGER PATHOLOGY ORDERABLES Performing Organization Address City/State/[facility] Co de Phone Number KATY REYES [address] [place] [address] documented in this encounter Visit Diagnoses Not on filedocumented in this encounter Care Teams Manager Purchasing Relationship Specialty Start Date End Date Briana Pierre MD [address] [phone] PCP - General 01/21/10 documented as of this encounter
--- OUTSIDE RECORDS SUMMARY | 2024-07-09 02:36 | XMS_ITS | Clinical Summary ---
Author Organization [facility] Address [address] [place] [address] Care Team Providers Care Logistician Name Role Phone Briana Pierre MD Primary Care Provider [phone] Social History Tobacco Use Types Packs/Day Years Used Date Smoking Tobacco: Never Assessed Sex and Gender Information Value Date Recorded Sex Assigned at Not on file Gender Identity Not on file Sexual Orientation Not on file Plan of Treatment Health Maintenance Due Date Last Done Comments Hepatitis C Screen 1955 RSV Immunization ( o r 60+ Years) (1 - 1-dose 60+ series) 2016 Fall Risk Screening 2021 COVID-19 Vaccine (2022-24 season) 2023 Care Teams Logistician Relationship Specialty Start Date End Date Briana Pierre MD [address] [place] [address] [address] [place] [phone] PCP - General 01/21/10
--- OUTSIDE RECORDS SUMMARY | 2024-07-09 02:36 | XMS_ITS | Encounter Summary ---
Author Organization [facility] Address [address] [place] [address] Care Team Providers Care Supervisor Telephone Clerks Name Role Phone Briana Bledsoe MD Primary Care Provider [phone] Encounter Details Date Type Department Care Team (Late st Contact Info) Description 03/11/2003 Results Only [facility] - Maple conversion [address] [place] [address] Briana Bledsoe MD [address] [place] [address] Social History Tobacco Use Types [...] Priority Date/Time Associated Diagnosis Comments CYTOPATHOLOGY Routine 03/11/2003 0:00 EDT documented in this encounter Results * CYTOPATHOLOGY (03/11/2003 0:00 EDT) Pathology Report: CYTOPATHOLOGY REPORT Reports generated via electronic interface contain original data; however they are lacking the format of the original report. Caution should be taken when reading/interpreti ng unformatted reports. Name: ? MARION SCHRADER ? Accession #: ? [id number] : ? 1955 (Age: 47) ??F ?Collect Date: ? 03/11/2003 Location: ? [facility] ? Receive Date: ? 03/13/2003 Provider: ?BRIANA BLEDSOE MD Copy to: ? Specimen/Source: ?ThinPrep Pap Test, Cervix/Endocervix Last Menstrual Period: ? 05/29 Other: ? HPVA - HPV testing requested if ASC-US on the current ThinPrep Pap test. ? SPECIMEN ADEQUACY ? Satisfactory for Evaluation - transformation zone component present GENERAL CATEGORIZATION ? Negative for Intraepithelial Lesion or Malignancy ? Document reviewed and electronically signed by: ? JONO Chowdhury(ASCP) ? Report Date: ??03/18/2003 06:50 End of Report KATY REYES 03/11/2003 03/13/2003 Briana Bledsoe MD PATHOLOGY ORDERABLES Performing Organization Address City/State/[facility] Co de Phone Number KATY REYES [address] [place] [address] documented in this encounter Visit Diagnoses Not on filedocumented in this encounter Care Teams Supervisor Telephone Clerks Relationship Specialty Start Date End Date Briana Bledsoe MD [address] [place] [phone] PCP - General 01/21/10 documented as of this encounter
--- OUTSIDE RECORDS SUMMARY | 2024-07-09 02:36 | XMS_ITS | Encounter Summary ---
Author Organization [facility] Address [address] [place] [address] Care Team Providers Care Emergency Medicine Physician Name Role Phone Briana Pierre MD Primary Care Provider [phone] Encounter Details Date Type Department Care Team (Late st Contact Info) Description 11/01/2011 Results Only [facility] Laboratory Services - [facility] ([facility] [place] [address] [place], [place] [phone] Manuel Copeland, THAO [address] [place] [address] Social History Tobacco Use Types Packs/Day Years Used Date Smoking Tobacco: Never Assessed Sex and Gender Information Value Date Recorded Sex Assigned at Not on file Gender Identity Not on file Sexual Orientation Not on file documented as of this encounter Plan of Treatment Not on file documented as of this encounter Procedures Procedure Name Priority Date/Time Associated Diagnosis Comments PAP TEST- RESULT ONLY Routine 11/01/2011 0:00 EST documented in this encounter Results * PAP TEST- RESULT ONLY (11/01/2011 0:00 EST) Pathology Report: CYTOPATHOLOGY REPORT Reports generated via electronic interface contain original data; however they are lacking the format of the original report. Caution should be taken when reading/interpreti ng unformatted reports. Name: ? MARION SCHRADER ? Accession #: ? [id number] ? : ? 1955 (Age: 56) ??F ?Collect Date: ? 11/01/2011 ? Location: ? [facility] ? Receive Date: ? 11/03/2011 ? Provider: MANUEL COPELAND FILTER PRESS PUMPER Copy to: ? Final Report SPECIMEN ADEQUACY ? Satisfactory for Evaluation - assessment of transformation zone component not applicable ( e.g. atrophy, vaginal sample, hysterectomy) - scant squamous epithelial component GENERAL CATEGORIZATION ? Negative for Intraepithelial Lesion or Malignancy ?? Menstural/Pregnanc y Status: ??Post Menopausal Specimen/Source: ??Pap Test, Cervix/Endocervix, ThinPrep Imaging System with manual evaluation Document reviewed and electronically signed by: ? Rommel Ivey, CT(ASCP) ? Report ??Date: 11/05/2011 09:38 HPV with Pap Test ? Date Ordered: ? 11/05/2011 ? Status: ?? Signed Out ?Date Complete: ? 11/09/2011 ? By: ??System Interface ? Date Reported: ? 11/09/2011 ? Interpretation RESULT: Negative for HPV types 16, 18, 31, 33, 35, 39, 45, 51, 52, 56, 58, 59, and 68. Comments Document reviewed and electronically signed by: ? System Interface ? Report date: 11/09/2011 By the signature above, the attending physician certifies that he/she has personally conducted a gross and/or microscopic examination of the described specimens and rendered or confirmed the above diagnosis. End of Report [facility] 11/01/2011 11/03/2011 Manuel Copeland FILTER PRESS PUMPER PATHOLOGY ORDERABLES Performing Organization Address City/State/[facility] Co de Phone Number [facility] [address] [place] [address] documented in this encounter Visit Diagnoses Not on filedocumented in this encounter Care Teams Emergency Medicine Physician Relationship Specialty Start Date End Date Briana Pierre MD [address] [place] [phone] PCP - General 01/21/10 documented as of this encounter
--- OUTSIDE RECORDS SUMMARY | 2024-07-09 02:36 | XMS_ITS | Encounter Summary ---
Author Organization [facility] Address [address] [place] [address] Care Team Providers Care Rn Dermatology Name Role Phone Briana Pierre MD Primary Care Provider [phone] Encounter Details Date Type Department Care Team (Late st Contact Info) Description 10/17/2015 Results Only [facility] [phone] Viktoriya Tejada, THAO [place] [address] Social History Tobacco Use Types Packs/Day Years [...] Diagnosis Comments PAP TEST- RESULT ONLY Routine 10/17/2015 0:00 EST documented in this encounter Results * PAP TEST- RESULT ONLY (10/17/2015 0:00 EST) Pathology Report: CYTOPATHOLOGY REPORT Reports generated via electronic interface contain original data; however they are lacking the format of the original report. Caution should be taken when reading/interpreti ng unformatted reports. Name: ? MARION SCHRADER ? Accession #: ? [id number] ? : ? 1955 (Age: 60) ??F ?Collect Date: ? 10/17/2015 ? Location: ? [facility] ? Receive Date: ? 10/20/2015 ? Provider: VIKTORIYA TEJADA PROPERTY PRESERVATION SPECIALIST Copy to: ? Final Report SPECIMEN ADEQUACY ? Satisfactory for Evaluation - assessment of transformation zone component not applicable ( e.g. atrophy, vaginal sample, hysterectomy) - scant squamous epithelial component GENERAL CATEGORIZATION ? Negative for Intraepithelial Lesion or Malignancy ?? Menstrual/Pregnanc y Status: ??Menopausal Specimen/Source: ??Pap Test, Cervix, ThinPrep Imaging System with manual evaluation Document reviewed and electronically signed by: ? Nicole Atwood, JONO(ASCP) ? Report ??Date: 10/21/2015 13:51 HPV with Pap Test ? Date Ordered: ? 10/21/2015 ? Status: ?? Signed Out ?Date Complete: ? 10/24/2015 ? By: ??System Interface ? Date Reported: ? 10/24/2015 ? Interpretation RESULT: Negative for HPV. No E6 or E7 mRNA is detected from HPV types 16,18,31,33,35, 39,45,51,52,56,58, 59,66, and 68 by frame table operator mediated amplification. Comments Document reviewed and electronically signed by: ? System Interface ? Report date: 10/24/2015 By the signature above, the attending physician certifies that he/she has personally conducted a gross and/or microscopic examination of the described specimens and rendered or confirmed the above diagnosis. End of Report [facility] 10/17/2015 10/20/2015 Viktoriya Tejada PROPERTY PRESERVATION SPECIALIST PATHOLOGY ORDERABLES [facility] [address] [place] [address] documented in this encounter Visit Diagnoses Not on filedocumented in this encounter Care Teams Rn Dermatology Relationship Specialty Start Date End Date Briana Pierre MD [address] [place] [phone] PCP - General 01/21/10 documented as of this encounter
--- OUTSIDE RECORDS SUMMARY | 2024-07-09 02:36 | XMS_ITS | Encounter Summary ---
Author Organization [facility] Address [address] [place] [address] Care Team Providers Care Electronics Supervisor Name Role Phone Briana Pierre MD Primary Care Provider [phone] Encounter Details Date Type Department Care Team (Latest Contact Info) Description 01/16/2021 Lab Requisition [facility] Pathology & Laboratory Medicine - [facility] [address] [place] [address] Viktoriya Juan NP [address] [place], [place] [phone] Encounter for general adult medical examination without abnormal findings; Encounter for screening for malignant neoplasm of cervix; Encounter for screening for human papillomavirus (HPV) Social History Tobacco Use Types Packs/Day Years Used Date Smoking Tobacco: Never Assessed Sex and Gender Information Value Date Recorded Sex Assigned at Not on file Gender Identity Not on file Sexual Orientation Not on file documented as of this encounter Plan of Treatment Not on file documented as of this encounter Procedures Procedure Name Priority Date/Time Associated Diagnosis Comments PAP TEST Today 01/14/2021 8:00 EST Encounter for general adult medical examination without abnormal findings Encounter for screening for malignant neoplasm of cervix Encounter for screening for human papillomavirus (HPV) HPV DNA DETECTION WITH GENOTYPING, PCR Today 01/14/2021 8:00 EST Encounter for general adult medical examination without abnormal findings Encounter for screening for malignant neoplasm of cervix Encounter for screening for human papillomavirus (HPV) documented in this encounter Results * HUMAN PAPILLOMAVIRUS (HPV) DETECTION-HIGH RISK TYPES (01/14/2021 8:00 EST) HPV other High Risk types, PCR Negative Negative 01/26/2021 20:58 [facility] Comment:No E6 or E7 mRNA is detected from HPV types 16,18,31,33,35,39,45,51,52,56,58,59,66, and 68 by gravity prospecting observer helper mediated amplification. Papanicolaou smear specimen (specimen) CERVIX UTERI STRUCTURE / Unknown 01/14/2021 8:00 EST 01/21/2021 16:24 EST Viktoriya Juan NP MICROBIOLOGY - GENER AL ORDERABLES [facility] [address] [place] [phone] * PAP TEST (01/14/2021 8:00 EST) Specimens A. Cervix and/or Endocervix , ThinPrep Imaging System with Manual Evaluation 01/26/2021 20:58 [facility] Specimen Adequacy Satisfactory for Evaluation - assessment of transformation zone component not applicable ( e.g. atrophy, vaginal sample, hysterectomy) 01/26/2021 20:58 [facility] General Categorization Negative for intraepithelial lesion or malignancy 01/26/2021 20:58 [facility] Attestation . 01/26/2021 20:58 [facility] at 2058 Clinical History See below 01/27/20 20:58 [facility] HPV The result for the Human Papillomavirus (HPV) Detection-High Risk Types is Negative. No E6 or E7 mRNA is detected from HPV types 16,18,31,33,35,39 ,45,51,52,56,58,5 9,66, and 68 by gravity prospecting observer helper mediated amplification.Sabrina ting was performed on specimen [id number] and was resulted on 01/26/2021 1954 EST by EMMANUEL, LAB INSTRUMENT RESULTS IN 01/26/2021 20:58 [facility] Performing Lab [facility] 01/26/2021 20:58 EST [facility] Scanned Images 01/26/2021 20:58 EST [facility] Papanicolaou smear specimen (specimen) CERVIX UTERI STRUCTURE / Unknown 01/14/2021 8:00 EST 01/16/2021 14:37 EST Viktoriya Juan NP PATHOLOGY ORDERABLES Performing Organization Address City/State/[facility] Co de Phone Number [facility] [address] [place] [address] documented in this encounter Visit Diagnoses Diagnosis Encounter for general adult medical examination without abnormal findings Unspecified general medical examination Encounter for screening for malignant neoplasm of cervix Screening for malignant neoplasm of the cervix Encounter for screening for human papillomavirus (HPV) Special screening examination for human papillomavirus (HPV) documented in this encounter Care Teams Electronics Supervisor Relationship Specialty Start Date End Date Briana Pierre MD [address] [place] [phone] PCP - General 01/21/10 documented as of this encounter
--- OUTSIDE RECORDS SUMMARY | 2024-07-09 02:36 | XMS_ITS | Encounter Summary ---
Author Organization [facility] Address [address] [place] [address] Care Team Providers Care Administrative Resources Associate Name Role Phone Briana Bledsoe MD Primary Care Provider [phone] Encounter Details Date Type Department Care Team (Late st Contact Info) Description 03/13/2012 Results Only [facility] Laboratory Services - [facility] ([facility] [place] [place] [address] [place], [place] [address] Diomedes Monae MD [address] [place], [place] [phone] Social History Tobacco Use Types Packs/Day Years Used Date Smoking Tobacco: Never Assessed Sex and Gender Information Value Date Recorded Sex Assigned at Not on file Gender Identity Not on file Sexual Orientation Not on file documented as of this encounter Plan of Treatment Not on file documented as of this encounter Procedures Procedure Name Priority Date/Time Associated Diagnosis Comments SURGICAL PATHOLOGY Routine 03/13/2012 0:00 EDT documented in this encounter Results * SURGICAL PATHOLOGY (03/13/2012 0:00 EDT) Pathology Report: SURGICAL PATHOLOGY REPORT Reports generated via electronic interface contain original data; however they are lacking the format of the original report. Caution should be taken when reading/interpreti ng unformatted reports. Name: ? ADRIEN SCHRADER ? Accession #: ? [id number] ? : ? 1955 (Age: 56) ??F ? Collect Date: ? 03/13/2012 ? Location: ? [facility] ? Receive Date: ? 03/13/2012 ? Provider: DIOMEDES MONAE MD Copy to: BRIANA BLEDSOE MD ? Final Pathologic Diagnosis: A. ?Colon, ascending, biopsy: 1. ?Colonic mucosa with no specific pathologic features. ?? See comment. B. ?Colon, splenic flexure, polyp, biopsies: 1. ?Fragments of cauterized hyperplastic polyp. ??See comment. C. ?Colon, sigmoid, polyp, biopsy: 1. ?Hyperplastic polyp. Comment: ? Deeper sections of specimens (A) and (B) have been reviewed. ??(Dr. Raymundo)/[facility] Document reviewed and electronically signed by: KATHY RAYMUNDO MD Report ??Date: 03/15/2012 14:24 By the signature above, the attending physician certifies that he/she has personally conducted a gross and/or microscopic examination of the described specimens and rendered or confirmed the above diagnosis. Specimen(s) Received: A. ?Ascending colon polyp B. ? Splenic flexure polyp C. ? Sigmoid polyp Clinical History: ? Colorectal screen Gross Description: ? Received in formalin labelled Adrien Schrader and ?ascending colon polyp is a single 1.5 x 0.2 x 0.1 cm, pink-valero, irregular, soft tissue. Submitted in toto in (A). Received in formalin labelled Adrien Schrader and splenic flexure polyp is a single 0.5 x 0.3 x 0.2 cm, valero-red, irregular, soft tissue. ??Submitted in toto in (B). Received in formalin labelled Schrader, Adrien and sigmoid polyp are two pink-valero, irregular, soft tissues, 0.4 x 0.2 x 0.1 cm and 0.5 x 0.3 x 0.3 cm. Submitted in toto in (C). ??(Lester Storey)/[facility]k End of Report [facility] 03/13/2012 03/13/2012 16: 18 EDT Diomedes Monae MD PATHOLOGY ORDERABLES [facility] [address] [place] [address] documented in this encounter Visit Diagnoses Not on filedocumented in this encounter Care Teams Administrative Resources Associate Relationship Specialty Start Date End Date Briana Bledsoe MD [address] [place] [phone] PCP - General 01/21/10 documented as of this encounter
--- OUTSIDE RECORDS SUMMARY | 2024-07-09 02:36 | XMS_ITS | Encounter Summary ---
Author Organization [facility] Address [address] [place] [id number] Care Team Providers Care Medical Office Professional Instructor Name Role Phone Unavailable Primary Care Provider Unavailabl e Encounter Details Date Type Department Care Team (Late st Contact Info) Description 01/19/2010 Results Only [facility] - [facility] [place] [place] [address] [place], [place] [id number] Diomedes Monae MD [address] [place], [place] [id number] Social History Tobacco Use Types Packs/Day Years Used Date Smoking Tobacco: Never Assessed Sex and Gender Information Value Date Recorded Sex Assigned at Not on file Gender Identity Not on file Sexual Orientation Not on file documented as of this encounter Plan of Treatment Not on file documented as of this encounter Procedures Procedure Name Priority Date/Time Associated Diagnosis Comments SURGICAL PATHOLOGY Routine 01/19/2010 0:00 EST documented in this encounter Results * SURGICAL PATHOLOGY (01/19/2010 0:00 EST) Pathology Report: SURGICAL PATHOLOGY REPORT ? Reports generated via electronic interface contain original data; ? however they are lacking the format of the original report. ? Caution should be taken when reading/interpreti ng unformatted reports. ? Name: ? ADRIEN SCHRADER ? Accession #: ? [id number] ? : ? 1955 (Age: 54) ??F ? Collect Date: ? 01/19/2010 ? Location: ? [facility] ? Receive Date: ? 01/19/2010 ? Provider: DIOMEDES MONAE MD ? Copy to: GAIL BLEDSOE MD ? Final Pathologic Diagnosis: ? Skin of neck, posterior, excision: ? - Follicular cyst, infundibular type. ? Microscopic Description: ? There is a dermal cyst that is lined by stratified squamous epithelium that matures through a granular layer. ??The cyst is filled with laminated ? orthokeratin. ??(Dr. Cisneros)/mpl ? Document reviewed and electronically signed by: ? Juli Cisneros MD ? Report ??Date: 01/21/2010 14:17 ? By the signature above, the attending physician certifies that he/she has ? personally conducted a gross and/or microscopic examination of the described ? specimens and rendered or confirmed the above diagnosis. ? Specimen(s) Received: ? Cyst posterior neck ? Clinical History: ? Cyst center of posterior neck at hairline since associate sales representative, increasing size, occ malodorous. ? Gross Description: ? Received in formalin labelled Adrien Schrader and cyst posterior neck is a large cystic structure measuring 6.0 x 3.5 x 3.0 cm. ??Overlying the cyst is an elliptical excision of valero unremarkable skin measuring 3.5 x 1.2 cm. ??The cyst ?? wall appears valero-white with a thin fibrous layer. ??The margins are inked black. Sectioning reveals the cyst to be filled with a soft yellow keratinous material. A loan servicing representative cross section is submitted as (A1) through (A2), bisected. ? (Dr. Luke)/ilsa ? End of Report ? [facility] 01/19/2010 01/19/2010 16: 35 EST Diomedes Monae MD PATHOLOGY ORDERABLES Performing Organization Address City/State/[facility] Co de Phone Number [facility] [address] [phone] documented in this encounter Visit Diagnoses Not on filedocumented in this encounter
--- OUTSIDE RECORDS SUMMARY | 2024-07-09 02:36 | XMS_ITS | Encounter Summary ---
Author Organization [facility] Address [address] [place] [address] Care Team Providers Care Internet Designer Name Role Phone Briana Pierre MD Primary Care Provider [phone] Encounter Details Date Type Department Care Team (Late st Contact Info) Description 10/04/2006 Results Only [facility] - [facility] [address] [place] [address] Manuel De Los Santos, THAO [address] [place] [address] Social History Tobacco Use Types [...] Priority Date/Time Associated Diagnosis Comments CYTOPATHOLOGY Routine 10/04/2006 0:00 EST documented in this encounter Results * CYTOPATHOLOGY (10/04/2006 0:00 EST) Pathology Report: CYTOPATHOLOGY REPORT Reports generated via electronic interface contain original data; however they are lacking the format of the original report. Caution should be taken when reading/interpreti ng unformatted reports. Name: ? MARION SCHRADER ? Accession #: ? [id number] : ? 1955 (Age: 51) ??F ?Collect Date: ? 10/04/2006 Location: ? [facility] ? Receive Date: ? 10/06/2006 Provider: ? MANUEL DE LOS SANTOS BEVEL OPERATOR Copy to: ? CYTOLOGIC DIAGNOSIS: ? Breast, right, fine needle aspiration: - Morphologic description only. ??See comment. ? COMMENT: ? The specimen is paucicellular and shows scant foam cells and proteinaceous debris. No epithelial cells are present. The findings are non-diagnostic. ??(Dr. Castano)/[facility] Document reviewed and electronically signed by: ? Nicole Nicholson MD Report Date: ??10/06/2006 21:34 By the signature above, the attending physician certifies that he/she has personally conducted a gross and/or microscopic examination of the described specimens and rendered or confirmed the above diagnosis. Specimen Type: ? Breast, Fine Needle Aspiration, Rt. Breast Fluid Clinical History: ? Galactorrhea right breast ? Gross Description: ? 1 fixed prepared slide and 1 tube of Cytolyt were received and processed by selective cellular enhancement technique. ? End of Report [facility] 10/04/2006 10/06/2006 8:4 0 EST Manuel De Los Santos BEVEL OPERATOR PATHOLOGY ORDERABLES [facility] [address] [place] [address] documented in this encounter Visit Diagnoses Not on filedocumented in this encounter Care Teams Internet Designer Relationship Specialty Start Date End Date Briana Pierre MD [address] [place] [phone] PCP - General 01/21/10 documented as of this encounter
--- OUTSIDE RECORDS SUMMARY | 2024-07-09 02:36 | XMS_ITS | Encounter Summary ---
Author Organization [facility] Address [address] [place] [address] Care Team Providers Care Splicing Technician Name Role Phone Briana Bledsoe MD Primary Care Provider [phone] Encounter Details Date Type Department Care Team (Late st Contact Info) Description 11/03/2006 Results Only [facility] - [facility] [address] [place] [address] Diomedes Monae MD [address] [place], [place] [phone] Social History Tobacco Use Types Packs/Day Years Used Date Smoking Tobacco: Never Assessed Sex and Gender Information Value Date Recorded Sex Assigned at Not on file Gender Identity Not on file Sexual Orientation Not on file documented as of this encounter Plan of Treatment Not on file documented as of this encounter Procedures Procedure Name Priority Date/Time Associated Diagnosis Comments SURGICAL PATHOLOGY Routine 11/03/2006 0:00 EST documented in this encounter Results * SURGICAL PATHOLOGY (11/03/2006 0:00 EST) Pathology Report: SURGICAL PATHOLOGY REPORT Reports generated via electronic interface contain original data; however they are lacking the format of the original report. Caution should be taken when reading/interpreti ng unformatted reports. Name: ? ADRIEN SCHRADER ? Accession #: ? [id number] ? : ? 1955 (Age: 51) ??F ? Collect Date: ? 11/03/2006 ? Location: ? [facility] ? Receive Date: ? 11/03/2006 ? Provider: DIOMEDES MONAE MD Copy to: BRIANA BLEDSOE MD ? Final Pathologic Diagnosis: ? Gallbladder, cholecystectomy: 1. ?Chronic cholecystitis. 2. ? Cholelithiasis. Document reviewed and electronically signed by: Marlene Yoo MD Report ??Date: 11/07/2006 14:28 By the signature above, the attending physician certifies that he/she has personally conducted a gross and/or microscopic examination of the described specimens and rendered or confirmed the above diagnosis. Specimen(s) Received: ? Gallbladder Clinical History: ? Cholelithiasis Gross Description: ? Received in formalin labelled Schrader and gallbladder is an 8.6 x 1.9 x 1.8 cm gallbladder with a 1.0 cm in length surgical-type incision at the fundus that has no surrounding exudate. ??The external surface is valero-pink and smooth and glistening. There is no palpable cystic duct lymph node. ??Cut section reveals a 0.2 cm wall thickness, a valero-pink velvety mucosa and approximately fifty irregularly shaped mixed type stones that measure up to 0.7 cm in greatest dimension. ??Two patient portal representative sections of gallbladder wall and the cystic duct resection (en face) are submitted in one cassette. ??(Dr. Jennifer Cassidy)/[facility] End of Report [facility] 11/03/2006 11/03/2006 15: 32 EST Diomedes Monae MD PATHOLOGY ORDERABLES [facility] [address] [place] [address] documented in this encounter Visit Diagnoses Not on filedocumented in this encounter Care Teams Splicing Technician Relationship Specialty Start Date End Date Briana Bledsoe MD [address] [place] [phone] PCP - General 01/21/10 documented as of this encounter
== END 2024-07-09 02:54 ==
PROVIDERS: PCP Family Medicine; Visit Provider Nurse Practitioner Family
DX: Z78.0 Asymptomatic menopausal state (principal); Z12.31 Encounter for screening mammogram for malignant neoplasm of breast; Z13.820 Encounter for screening for osteoporosis
CPT/HCPCS: 77063; 77067; 77080

== ENCOUNTER → 2025-02-05 07:58 | Outpatient (BNVA) | payer MEDICARE, SELFPAY | PROVIDERS: PCP Family Medicine; Referring Provider Family Medicine; Visit Provider Podiatrist | DX: L60.3 Nail dystrophy (principal); B35.1 Tinea unguium; L60.2 Onychogryphosis; L60.0 Ingrowing nail | CPT/HCPCS: 11750; 99215 ==

== ENCOUNTER → 2025-02-27 08:30 | Outpatient (BNVA) | payer MEDICARE, SELFPAY | PROVIDERS: PCP Family Medicine; Referring Provider Family Medicine; Visit Provider Podiatrist | DX: L60.3 Nail dystrophy (principal); B35.1 Tinea unguium; L60.0 Ingrowing nail; L60.2 Onychogryphosis | CPT/HCPCS: 99214 ==

== ENCOUNTER 2025-05-20 18:19 | Outpatient (REF) | payer MEDICARE, SELFPAY ==
[2025-05-20 16:05] LABS: Anion Gap 3.3 mmol/L (3-11); BUN 8 mg/dL (7-18); CO2 33.7 mmol/L (21.0-32.0); CREATININE 0.9 mg/dL (0.55-1.02); Calcium 9.2 mg/dL (8.5-10.1); Calculated LDL 90 mg/dL (<100); Chloride 92 mmol/L (98-107); Cholesterol 162 mg/dL (<200); Estimated GFR 69.64 (mL/min/1.73m2); Glucose 105 mg/dL (74-106); HDL Cholesterol 56 mg/dL (>or=50); Potassium 3.2 mmol/L (3.5-5.1); Sodium 129 mmol/L (136-145); Triglyceride 83 mg/dL (<150)
== END 2025-05-20 18:20 | disposition home or self-care (01) ==
LOC: NCHCN 18:19
PROVIDERS: PCP Family Medicine; Visit Provider Nurse Practitioner Family
DX: Z00.00 Encounter for general adult medical examination without abnormal findings (principal)
CPT/HCPCS: 80048; 80061

== ENCOUNTER 2025-08-13 03:40 | Outpatient (CLI) | payer MEDICARE, SELFPAY ==
--- NOTE | 2025-08-13 | DI.MAMMO_ITS ---
Exam(s) MAMMO SCREENING EXAM: MAMMO SCREENING CLINICAL HISTORY: SCREENING,Z12.31. TECHNIQUE: Bilateral full field digital CC and MLO mammographic images were obtained with 3D tomosynthesis and utilizing computer aided detection (CAD). COMPARISON: Prior mammograms were reviewed. FINDINGS: No new right breast findings. Small nodules laterally in the right breast are unchanged from 2016 and a skin tag is noted medially. In the left breast there is a laterally located benign-appearing nodule which is unchanged from 2016. There is also a nodular density measuring 6 x 3 mm located 10 cm in from the nipple on the CC view, also stable appearing. There are no malignant-appearing microcalcification groups in either breast. There is no significant architectural distortion nor skin thickening-retraction. IMPRESSION: Stable benign-appearing findings. No radiographic evidence of malignancy BI-RADS Category 2 - Benign Findings Breast Density - Category B - There are scattered areas of fibroglandular density. Breast density Category C or D implies that the patient has dense breast tissue. Dense breast tissue can make it harder to find cancer on a mammogram. Dense breast tissue is also associated with an increased risk of breast cancer. This information about the result of the mammogram report was provided to the patient to raise their awareness. Use this report when you speak with the patient about their risks for breast cancer, which includes their family history. At that time, you may recommend additional screening tests (Ultrasound or MRI) as these tests may add significant information. A negative radiographic report should not delay biopsy if a dominant or clinically suspicious mass is present. Up to ten percent of cancers are not identified on mammography. A negative report may reinforce clinical impression. Adenosis and dense breasts may obscure an underlying neoplasm. False positive reports average 6 to 10%. Patient will receive a letter notifying them of these results.
== END 2025-08-13 04:00 ==
LOC: DI 03:40
PROVIDERS: PCP Family Medicine; Visit Provider Nurse Practitioner Family
DX: Z12.31 Encounter for screening mammogram for malignant neoplasm of breast (principal)
CPT/HCPCS: 77063; 77067

== ENCOUNTER 2025-09-05 10:31 | Outpatient (REF) | payer MEDICARE, SELFPAY ==
[2025-09-05 14:54] LABS: Abs Immature Grans 0.01 10^3/uL (0.0-0.06); HCT 40.4 % (36.0-46.0); HGB 12.8 g/dL (11.2-15.7); Immature Grans % 0.2 %; MCH 28.8 pg (27.0-33.0); MCHC 31.7 % (32.0-36.0); MCV 91 fL (80-95); MPV 11.3 fL (8.0-11.0); Platelet Count 234 10^3/uL (130-400); RBC 4.45 10^6/uL (3.93-5.22); RDW 13.4 % (11.7-14.6); RDW-SD 45.1 fL; WBC 5.72 10^3/uL (4.4-10.8)
[2025-09-05 15:19] LABS: Hemoglobin A1C 5.5 % (<5.7)
[2025-09-05 15:20] LABS: Iron 71 ug/dL (50-170); Total Iron Binding Capacity 317 ug/dL (250-450); Transferrin Sat 22 % (15-50)
[2025-09-05 15:43] LABS: ALT 26 U/L (14-59); AST 18 U/L (15-37); Albumin 3.7 g/dL (3.4-5.0); Alkaline Phosphatase 111 U/L (46-116); Anion Gap 7.9 mmol/L (3-11); BUN 10 mg/dL (7-18); Bilirubin, Total 0.6 mg/dL (0.2-1.0); CO2 30.1 mmol/L (21.0-32.0); Calcium 9.2 mg/dL (8.5-10.1); Chloride 106 mmol/L (98-107); Estimated GFR 79.71 (mL/min/1.73m2); Ferritin 76 ng/mL (8-252); Glucose 97 mg/dL (74-106); Magnesium 2.1 mg/dL (1.8-2.4); Potassium 4.3 mmol/L (3.5-5.1); Sodium 144 mmol/L (136-145); TSH 2.67 uIU/mL (0.36-3.74); Total Protein 7.0 g/dL (6.4-8.2); Vitamin B12 203 pg/mL (193-986); Vitamin D 25 Total 34 ng/mL (30-100)
== END 2025-09-05 10:32 | disposition home or self-care (01) ==
LOC: NCHCN 10:31
PROVIDERS: PCP Nurse Practitioner Family; Visit Provider Nurse Practitioner Family
DX: R41.3 Other amnesia (principal)
CPT/HCPCS: 80053; 82306; 82607; 82728; 83036; 83540; 83550; 83735; 84443; 85025

== ENCOUNTER → 2025-10-01 00:50 | Outpatient (CLI) | payer MEDICARE, SELFPAY ==
--- NOTE | 2025-10-01 | DI.MRI_ITS ---
Exam(s) MR BRAIN WO EXAM: MR BRAIN WO CLINICAL HISTORY: MEMORY CHANGE, OTHER AMNESIA R41.3 PROGRESSIVE MEM. LOSS TECHNIQUE: Multiplanar multisequence MRI of the brain was performed. COMPARISON: No exams were available for comparison FINDINGS: VENTRICLES AND EXTRA AXIAL SPACES: Normal in size and morphology for the patient's age. Ventricular and sulcal size appears symmetric and uniform. There is a 0.7 cm round extra-axial lesion along the high left parietal convexity (series [id number], image 21). This may represent a benign lesion such as a m eningioma. There is no mass effect. MIDLINE SHIFT: None. CEREBRAL PARENCHYMA: No focus of restricted diffusion to suggest acute infarct. No space-occupying lesion identified. There are few foci of hyperintense signal seen in the white matter on the FLAIR and T2 weighted images likely reflecting small vessel ischemic disease. HEMORRHAGE: None. BRAINSTEM/CEREBELLUM: Normal. CALVARIUM: Normal. VISUALIZED PARANASAL SINUSES/MASTOIDS:There is a mucous retention cyst in the right maxillary sinus. [place]: Normal flow void. PITUITARY GLAND: Unremarkable. OTHER FINDINGS: None. IMPRESSION: 1. There is no evidence of an acute infarct. 2. Symmetric and uniform ventricular and sulcal size. This is consistent with the patient's age. 3. Foci of hyperintense signal seen in the white matter on the FLAIR and T2 weighted images suggestive of small vessel ischemic disease. 4. 0.7 cm extra-axial lesion along the high parietal convexity. This may represent a benign extra-axial lesion such as a meningioma. DATA REPOSITORY:
== END ==
LOC: DI 00:50
PROVIDERS: PCP Nurse Practitioner Family; Visit Provider Nurse Practitioner Family
DX: I67.82 Cerebral ischemia (principal)
CPT/HCPCS: 70551